=== PATIENT | female | born 1965 | race Caucasian/White ===

== ENCOUNTER 2016-04-25 17:42 | Emergency (ER) | payer MEDICAID ==
[2015-11-24 09:42] VITALS: BMI 18.8
[~2016-04-25 17:42] MED LIST: CARAFATE1 G PO; CARDIZEM120 MG; CATAPRES0.1 MG PO; COREG25 MG PO; DYAZIDE 37.5/251 CAP PO; LISINOPRIL10 MG PO; METOPROLOL TART50 MG PO; NEXIUM20 MG PO; NORCO 10/325 TA1 TA1 PO; NORMODYNE / TR300 MG PO; NORVASC10 MG PO; PHENERGAN25 MG RC
[2016-04-25 18:46] LABS: BASOPHILS 0.5 % (0.0-2.0); EOSINOPHILS 0.1 % (0-7); HEMATOCRIT 49.4 % (36.0-48.0); HEMOGLOBIN 17.4 g/dL (12-16); IMMATURE GRANULOCYTES 0.1 % (0-5); LYMPHOCYTES 24.5 % (15-50); MCH 28.7 pg (26.0-34.0); MCHC 35.2 g/dL (31.0-37.0); MCV 81.4 fL (80.0-100.0); MEAN PLATELET VOLUME 9.5 fL (7.4-10.4); MONOCYTES 12.7 % (2-11); NEUTROPHILS 62.1 % (40-80); RBC 6.07 10x6/uL (4.00-5.40); RDW 15.1 % (11.5-14.5)
[2016-04-25 18:48] LABS: PLATELET COUNT 256 10x3/uL (130-400)
[2016-04-25 19:41] LABS: ALBUMIN 4.3 g/dL (3.4-5.0); ALKALINE PHOSPHATASE 43 U/L (46-116); ALT (SGPT) 22 U/L (10-68); AMYLASE - SERUM 129 U/L (25-115); BILIRUBIN - TOTAL 0.53 mg/dL (0.2-1.3); CALCIUM 10.2 mg/dL (8.5-10.1); CARBON DIOXIDE 31.9 mmol/L (21.0-32.0); CHLORIDE - SERUM 93 mmol/L (98-107); CREATINE KINASE 314 UL (21-215); CREATININE - SERUM 1.5 mg/dL (0.6-1.3); LIPASE 923 U/L (73-393); SODIUM 138 mmol/L (136-145); UREA NITROGEN 28 mg/dL (7-18); eGFR NON AFRICAN AMERICAN 39 mL/min (90-120)
[2016-04-25 19:44] LABS: CALC OSMOLALITY 285 mosm/kg (275-300); GLUCOSE 168 mg/dL (74-106)
[2016-04-25 19:48] LABS: POTASSIUM - SERUM 2.3 mmol/L (3.5-5.1)
[2016-04-25 19:50] LABS: CKMB 36.5 U/L (0.0-3.6)
== END 2016-04-25 22:50 | disposition home or self-care (01) ==
LOC: D.ER 17:42
PROVIDERS: Family Medicine
DX: R10.9 Unspecified abdominal pain (principal); R11.10 Vomiting, unspecified; K85.90 Acute pancreatitis without necrosis or infection, unspecified; K21.9 Gastro-esophageal reflux disease without esophagitis; I10 Essential (primary) hypertension; R00.0 Tachycardia, unspecified

== ENCOUNTER 2016-04-27 14:43 | Emergency (ER) | payer MEDICAID ==
[2015-11-24 09:42] VITALS: BMI 18.8
[2016-04-27 15:53] LABS: BASOPHILS 0.7 % (0.0-2.0); EOSINOPHILS 0.7 % (0-7); HEMATOCRIT 44.4 % (36.0-48.0); HEMOGLOBIN 15.7 g/dL (12-16); IMMATURE GRANULOCYTES 0.2 % (0-5); LYMPHOCYTES 41.9 % (15-50); MCH 28.7 pg (26.0-34.0); MCHC 35.4 g/dL (31.0-37.0); MCV 81.2 fL (80.0-100.0); MEAN PLATELET VOLUME 9.5 fL (7.4-10.4); MONOCYTES 9.5 % (2-11); PLATELET COUNT 215 10x3/uL (130-400); RBC 5.47 10x6/uL (4.00-5.40); RDW 14.5 % (11.5-14.5)
[2016-04-27 16:00] LABS: WBC 5.6 10x3/uL (4.8-10.8)
[2016-04-27 16:41] LABS: ALBUMIN 3.8 g/dL (3.4-5.0); BILIRUBIN - TOTAL 0.64 mg/dL (0.2-1.3); CALCIUM 9.7 mg/dL (8.5-10.1); CARBON DIOXIDE 33.2 mmol/L (21.0-32.0); CREATININE - SERUM 1.5 mg/dL (0.6-1.3)
[2016-04-27 16:44] LABS: ANION GAP 10.6 mmol/L (8-16)
[2016-04-27 16:47] LABS: POTASSIUM - SERUM 2.8 mmol/L (3.5-5.1)
[2016-04-27 17:49] LABS: APPEARANCE CLEAR (CLEAR); BILIRUBIN NEGATIVE (NEGATIVE); COLOR YELLOW (YELLOW); GLUCOSE NEGATIVE (NEGATIVE); KETONE NEGATIVE (NEGATIVE); LEUKOCYTE ESTERASE NEGATIVE (NEGATIVE); NITRITE NEGATIVE (NEGATIVE); PROTEIN NEGATIVE (NEGATIVE); UROBILINOGEN NORMAL (NORMAL)
[2016-04-27 18:07] LABS: LIPASE 348 U/L (73-393)
[2016-04-27 18:10] LABS: AMYLASE - SERUM 89 U/L (25-115)
== END 2016-04-27 18:55 | disposition home or self-care (01) ==
LOC: D.ER 14:43
PROVIDERS: Emergency Medicine; Physician Assistant
DX: R10.9 Unspecified abdominal pain (principal); M54.5 Low back pain; E87.6 Hypokalemia

== ENCOUNTER 2016-04-29 12:07 | Emergency (ER) | payer MEDICAID ==
[2015-11-24 09:42] VITALS: BMI 18.8
[2016-04-29 12:57] LABS: BASOPHILS 0.9 % (0.0-2.0); EOSINOPHILS 2.1 % (0-7); HEMOGLOBIN 16.4 g/dL (12-16); IMMATURE GRANULOCYTES 0.2 % (0-5); LYMPHOCYTES 25.1 % (15-50); MCH 28.8 pg (26.0-34.0); MCHC 35.7 g/dL (31.0-37.0); MCV 80.8 fL (80.0-100.0); MEAN PLATELET VOLUME 9.7 fL (7.4-10.4); MONOCYTES 17.4 % (2-11); NEUTROPHILS 54.3 % (40-80); PLATELET COUNT 207 10x3/uL (130-400); RBC 5.69 10x6/uL (4.00-5.40); WBC 4.3 10x3/uL (4.8-10.8)
[2016-04-29 13:13] LABS: APPEARANCE CLEAR (CLEAR); BILIRUBIN NEGATIVE (NEGATIVE); COLOR YELLOW (YELLOW); GLUCOSE NEGATIVE (NEGATIVE); KETONE NEGATIVE (NEGATIVE); LEUKOCYTE ESTERASE TRACE (NEGATIVE); NITRITE NEGATIVE (NEGATIVE); PROTEIN NEGATIVE (NEGATIVE); UROBILINOGEN NORMAL (NORMAL)
[2016-04-29 13:15] LABS: BACTERIA FEW /hpf (NONE SEEN); EPITHELIAL CELLS 0-5 /hpf (0-5); MUCUS <1+ /lpf (NONE SEEN); WHITE CELLS - URINE 0-5 /hpf (0-5)
[2016-04-29 13:18] LABS: ALBUMIN 4.2 g/dL (3.4-5.0); ANION GAP 12.9 mmol/L (8-16); BILIRUBIN - TOTAL 0.6 mg/dL (0.2-1.3); CALCIUM 9.5 mg/dL (8.5-10.1); CARBON DIOXIDE 32.6 mmol/L (21.0-32.0); CREATININE - SERUM 1.2 mg/dL (0.6-1.3); PROTEIN - SERUM 7.8 g/dL (6.4-8.2)
[2016-04-29 13:19] LABS: POTASSIUM - SERUM 3.5 mmol/L (3.5-5.1)
== END 2016-04-29 15:57 | disposition home or self-care (01) ==
LOC: D.ER 12:07
PROVIDERS: Emergency Medicine
DX: R10.32 Left lower quadrant pain (principal); K86.1 Other chronic pancreatitis

== ENCOUNTER 2016-10-16 11:53 | Inpatient (IN) | payer MEDICAID ==
[~2016-10-16] VITALS: Ht 165.1 cm; Wt 49.6 kg
[2016-10-16 12:36] LABS: BASOPHILS 0 % (0-2); EOSINOPHILS 0 % (0-7); HEMATOCRIT 40.4 % (36.0-48.0); HEMOGLOBIN 14.1 g/dL (12-16); IMMATURE GRANULOCYTES 0.3 % (0-5); LYMPHOCYTES 10.8 % (15-50); MCH 29.7 pg (26.0-34.0); MCHC 34.9 g/dL (31.0-37.0); MCV 85.2 fL (80.0-100.0); MONOCYTES 10.5 % (2-11); NEUTROPHILS 78.4 % (40-80); RBC 4.74 10x6/uL (4.00-5.40); RDW 11.9 % (11.5-14.5); WBC 3.6 10x3/uL (4.8-10.8)
[2016-10-16 12:38] LABS: PLATELET COUNT 120 10x3/uL (130-400)
[2016-10-16 12:49] LABS: ALBUMIN 3.6 g/dL (3.4-5.0); ANION GAP 9.9 mmol/L (8-16); BILIRUBIN - TOTAL 0.49 mg/dL (0.2-1.3); CALCIUM 8.3 mg/dL (8.5-10.1); CARBON DIOXIDE 33.4 mmol/L (21.0-32.0); CREATININE - SERUM 1.3 mg/dL (0.6-1.3); PROTEIN - SERUM 8.1 g/dL (6.4-8.2)
[2016-10-16 12:54] LABS: POTASSIUM - SERUM 2.3 mmol/L (3.5-5.1)
[2016-10-16 13:15] LABS: APPEARANCE CLEAR (CLEAR); BILIRUBIN NEGATIVE (NEGATIVE); COLOR YELLOW (YELLOW); GLUCOSE NEGATIVE (NEGATIVE); KETONE NEGATIVE (NEGATIVE); LEUKOCYTE ESTERASE NEGATIVE (NEGATIVE); NITRITE NEGATIVE (NEGATIVE); PROTEIN 2+ mg/dL (NEGATIVE); UROBILINOGEN NORMAL (NORMAL)
[2016-10-16 13:16] LABS: BACTERIA FEW /hpf (NONE SEEN); EPITHELIAL CELLS 0-5 /hpf (0-5); RED CELLS - URINE 0-5 /hpf (0-5); WHITE CELLS - URINE 0-5 /hpf (0-5)
--- NOTE | 2016-10-16 16:41 | NUR ---
PT RECEIVED TO ROOM 2108 VIA WHEELCHAIR. PT ORIENTED TO ROOM AND CALL LIGHT. PT RUNNING TEMP OF 102.2, TYLENOL GIVEN IN THE ER. PLACED WET WASH CLOTH TO FORHEAD. PT ASSESSED AT THIS TIME. IVFS STARTED INFUSING AND IVBP ROCEPHINE HUNG AND IV SOLU MEDROL GIVEN. PT RUNNING SR 95. PT DENIES ANY NEEDS AT THIS TIME. CALL LIGHT IN REACH, NAD NOTED, WILL CONTINUE TO MONITOR.
[2016-10-16 17:00] VITALS: BP 114/79; BMI 17.5
[2016-10-16] MEDS ORDERED: LIPITOR20 MG PO (17:16)
[2016-10-16] MEDS ORDERED: ATIVAN0.5 MG PO (17:18)
[2016-10-16] MEDS ORDERED: ATIVAN1 MG PO (17:19)
[2016-10-16] MEDS ORDERED: PHENERGAN25 M1 PO (17:20)
[2016-10-16] MEDS ORDERED: LISINOPRIL-HCTZ1 T13 PO (17:20)
[2016-10-16 20:00] VITALS: BP 104/62
--- NOTE | 2016-10-16 21:59 | NUR ---
INITIAL ROUNDS FARIBA T 1919 HRS. PT DENIED ANY DISCOMFORT. ASSESSMETN COMPLETEDA T 1954 HRS. VSS. SR PER CM HR 92. O2 2LNC. LUNGS DIMINISHED IN BASES BILAT. SLIGHT WEAKNESS NOTED TO L HAND. PM LOPRESSSOR HELD BP 91/53. RATIONALE EXPLAINED TO PT. PT CURRENTLY RESTING WITH EYES CLOSED. RESP EVEN AND REGULAR. SR UP X2, CALL LIGHT WITHIN REACH.
--- NOTE | 2016-10-16 23:40 | NUR ---
LAST DOSE OF KCL 20MEQ IN CRANBEERY JUICE GIVEN. PT DENIES ANY DISOCMFRT. WILL CONTINUE TO MONITOR.
--- NOTE | 2016-10-17 01:34 | NUR ---
PT RESTING WITH EYES CLOSED. RESP EVEN AND REGULAR. SR UP X2,CALL LIGHT WITHIN REACH.
[2016-10-17 04:00] VITALS: BP 93/59
--- NOTE | 2016-10-17 04:49 | NUR ---
PT RESTING WITH EYES CLOSED. RESP EVEN AND REGULAR. SR UP X2, CALL LIGHT WITHIN REACH.
--- NOTE | 2016-10-17 06:32 | NUR ---
VSS THRUGHOUT NIGHT. PT DENIES ANY DISCOMFORT. NEEDS MET; WILL CONTINUE TO MONITOR.
[2016-10-17 06:44] LABS: BASOPHILS 0 % (0-2); EOSINOPHILS 0 % (0-7); HEMATOCRIT 34.1 % (36.0-48.0); IMMATURE GRANULOCYTES 0.2 % (0-5); LYMPHOCYTES 5.1 % (15-50); MCH 29.4 pg (26.0-34.0); MCHC 35.2 g/dL (31.0-37.0); MCV 83.6 fL (80.0-100.0); MEAN PLATELET VOLUME 10.3 fL (7.4-10.4); MONOCYTES 3.5 % (2-11); NEUTROPHILS 91.2 % (40-80); PLATELET COUNT 96 10x3/uL (130-400); RBC 4.08 10x6/uL (4.00-5.40); WBC 4.9 10x3/uL (4.8-10.8)
[2016-10-17 06:53] LABS: ALBUMIN 2.8 g/dL (3.4-5.0); ANION GAP 13.8 mmol/L (8-16); BILIRUBIN - TOTAL 0.23 mg/dL (0.2-1.3); CALCIUM 7.3 mg/dL (8.5-10.1); CARBON DIOXIDE 27.5 mmol/L (21.0-32.0); CREATININE - SERUM 1.1 mg/dL (0.6-1.3); PROTEIN - SERUM 6.4 g/dL (6.4-8.2)
[2016-10-17 06:54] LABS: POTASSIUM - SERUM 3.3 mmol/L (3.5-5.1)
[2016-10-17 07:03] LABS: PLATELET ESTIMATE DECREASED
[2016-10-17 08:09] VITALS: BP 125/80
[2016-10-17 12:00] VITALS: BP 121/82
--- NOTE | 2016-10-17 13:00 | NUR ---
ALERT AND ORIENTED X4. RESTING IN BED. TYLENOL GIVEN ORDERED FOR HEADACHE. REQUESTING TO TAKE A NAP. ELECTROLYTE PROTOCOL POTASSIUM REPLACEMENT COMPLETE. DENIES ANY NEEDS. RECIEVES LOVENOX INJ. BED LOCKED AND LOW. CALL LIGHT IN REACH. TWO SIDERAILS UP. SINUS RHTHYM 83bpm ON TELEMETRY.
--- NOTE | 2016-10-17 16:28 | NUR ---
ALERT AND ORIENTED X4. RESTING IN BED. FAMILY AT BEDSIDE. REQUESTING FOR TO BE CALLED FOR PAIN MEDICATION. TYLENOL 500mg NOT AFFECTIVE FOR PAIN MANAGEMENT. PAGE . CONTINUE PLAN OF CARE AND SAFETY PRECAUTIONS.
--- NOTE | 2016-10-17 18:13 | NUR ---
ALERT AND ORIENTED X4. SITTING UP IN BED. TRAMADOL 50mg ORDERED Q4PRN FOR PAIN PER VIA TELEPHONE. PER , "I ALREADY TOLD HER YESTERDAY THAT I WAS NOT GOING TO PRESCRIBE HER ANY NARCOTICS BECAUSE IT ISN'T A HOME MEDICATION. SHE GOES OUT ON THE STREET TO GET MEDICATIONS." ASK PATIENT IF SHE REMEMBERS CONVERSATION. PATIENT REPLIES, "OH OK. YEA I REMEMBER." ENCOURAGE PATIENT NOT TO HAVE NURSE CALL FOR ANYMORE MEDICATION BECAUSE HE ALREADY SAID NO TWICE. DENIES ANY NEEDS. SINUS RHTHYM 85bpm ON TELEMETRY. BED LOCKED AND LOW. CALL LIGHT IN REACH. TWO SIDERAILS UP.
[2016-10-17 20:00] VITALS: BP 115/72
--- NOTE | 2016-10-17 22:07 | NUR ---
INITIAL ROUNDS COMPLETED AT 1914 HRS. PT REQUESTING PAIN MEDS. INFORMED ULTRAM NOT DUE UNTIL 2114 HRS. PT THEN ASKED IF SHE COULD HAVE 2 INSTEAD OF 1. INFORMED THE ORDERES WERE FOR 1 ONLY. PT THEN ASK ID RN COULD CALL DR DANIEL AND GET SOMETHING ELSE. INFORMED PT THAT DR. DANIEL HAS ALREADY BEEN CALLED TODAY AND HE IS NOT GOING TO PRESCRIBE ANYTHING ELSE AND DR DANIEL SPOKE TO PT 10/16/16 ON ADMISSION AND EXPLAINED TO PT RATIONALE. PT THEN STATED "OH YEAH, HE DID.". ASSESSMENT COMPLETED AT [address] PER CM HR 101. O2 2LNC. LUNGS DMINISHED IN BASES BILAT. IV TO R WRIST WITH NS AT 100CC/HR. IV PATENT. PM MEDS GIVEN INCLUDING ULTRAM. PT CURRENTLY WATCHING TV. WILL CONTINUE TO MONITOR. SR UP X2, CALL LIGHT WITHIN REACH.
--- NOTE | 2016-10-18 00:18 | NUR ---
PHENERGAN 25MG PO GIVEN FOR C/O NAUSEA. WILL CONTINUE TO MONITOR.
--- NOTE | 2016-10-18 02:00 | NUR ---
PT RESTING WITH EYES CLOSED. RESP EVENA ND REGULAR. SR UP X2, CALL LIGHT WITHIN REACH.
[2016-10-18 04:00] VITALS: BP 103/61
--- NOTE | 2016-10-18 04:57 | NUR ---
PT RESTING WITH EYES CLOSED. RESP EVEN AND REGULAR. SR UP X2, CALL LIGHT WITHIN REACH.
[2016-10-18 05:35] LABS: BASOPHILS 0 % (0-2); EOSINOPHILS 0 % (0-7); HEMATOCRIT 32.5 % (36.0-48.0); HEMOGLOBIN 11.3 g/dL (12-16); IMMATURE GRANULOCYTES 0.2 % (0-5); LYMPHOCYTES 7.6 % (15-50); MCH 29.3 pg (26.0-34.0); MCHC 34.8 g/dL (31.0-37.0); MCV 84.2 fL (80.0-100.0); MEAN PLATELET VOLUME 11.2 fL (7.4-10.4); MONOCYTES 4.1 % (2-11); NEUTROPHILS 88.1 % (40-80); PLATELET COUNT 94 10x3/uL (130-400); RBC 3.86 10x6/uL (4.00-5.40); RDW 12.2 % (11.5-14.5); WBC 6.1 10x3/uL (4.8-10.8)
[2016-10-18 05:47] LABS: ANION GAP 13.3 mmol/L (8-16); CALCIUM 7.8 mg/dL (8.5-10.1); CARBON DIOXIDE 28.1 mmol/L (21.0-32.0); CREATININE - SERUM 0.9 mg/dL (0.6-1.3)
[2016-10-18 06:15] LABS: POTASSIUM - SERUM 2.4 mmol/L (3.5-5.1)
--- NOTE | 2016-10-18 06:29 | NUR ---
VSS THROUGHOUT NIGHT. PT STATES ULTRAM AND PHENERGAN HELPED HER CHRONIC DISCOMFORT. NEEDS MET; WILL CONTINUE TO MONITOR.
--- NOTE | 2016-10-18 06:48 | NUR ---
k+ 2.4. KCL 20 MEQ MIXED IN 120CC OF CRANBERRY JUICE GIVEN PO PER ELECTROLYTE PROTOCOL. WILL CONTINUE TO MONITOR.
[2016-10-18 09:13] VITALS: BP 92/60
[2016-10-18 11:59] VITALS: BP 99/61
[2016-10-18 12:04] VITALS: Ht 165.1 cm; Wt 49.6 kg
--- NOTE | 2016-10-18 13:36 | NUR ---
ALERT AND ORIENTED X4. AMBULATING IN HUBBARD. DESTINY FROM LAB CALL CRITICAL POTASSIUM 2.7. IMPROVE FROM 5AM LABS K-2.4. ELECTROLYTE PROTOCOL CONTINUED PER ORDER FOR POTASSIUM REPLACEMENT. SINUS RHTHYM 92bpm ON TELEMETRY. CONTINUE PLAN OF CARE AND SAFETY PRECAUTIONS.
--- NOTE | 2016-10-18 14:13 | NUR ---
Patient Name: DEBBIE LANIER Admission Status: ER Accout number: [id number] Admission Date: 10-16-2016 : 1965 Admission Diagnosis: Attending: ANNMARIE Current LOS: 2 Anticipated DC Date: Planned Disposition: Home Primary Insurance: MEDICAID [place] Discharge Planning Comments: CM MET WITH PATIENT TO DISCUSS DISCHARGE PLANNING/NEEDS. PATIENT IS STILL SHORT OF BREATH FROM WALKING WITH PHYSICAL THERAPY. OFFERED TO COME BACK IN A BIT, BUT PATIENT STATED SHE WAS OK TO TALK NOW. SHE IS NOT ON OXYGEN AT HOME, BUT MAY BENEFIT FROM WALK TEST IF DOESN'T IMPROVE GREATLY BY DISCHARGE. SHE SAID SHE LIVES AT HOME WITH HER , GIL LANIER, AND THEIR 4 INDOOR DOGS AND ONE OUT DOOR DOG. SHE SAID SHE HAS NO MEDICAL EQUIPMENT NOR DOES SHE THINK SHE REALLY NEEDS ANY. SHE DENIES HOME HEALTH, AND SAID SHE DIDN'T THINK SHE NEEDED THAT EITHER. HER PLAN IS TO RETURN HOME AND SHE STATED HER STEPDAD WILL TAKE HER HOME AT DISCHARGE. CM WILL CONTINUE TO FOLLOW AND ASSIST NEEDED. Clinical Cytogeneticist: Homa Daniel Is the patient Alert and Oriented? Yes * How many steps to enter\exit or inside your home? 5, RAIL * PCP DR LANE * Pharmacy [facility] * Preadmission Environment Home with Family * ADLs Independent * Equipment None * List name and contact numbers for known caregivers / representatives who currently or will assist patient after discharge: ABDIRIZAK JARAMILLO, * Community resources currently utilized None * Additional services required to return to the preadmission environment? No * Can the patient safely return to the preadmission environment? Yes * Has this patient been hospitalized within the prior 30 days at any hospital? No
[2016-10-18 16:38] VITALS: BP 99/63
--- NOTE | 2016-10-18 19:10 | NUR ---
ALERT/AWAKE WATCHING TV. ORIENTED X 4. RATES PAIN LEVEL AT 7 ON NUMBER SCALE OF RT LEG, DESCRIBED ACHING/THROBBING. 0N 02 AT 2L/NC. RR 20 EVEN U/L. TELEMETRY SHOWS 110 ST. IV IN R WRIST INTACT SL. REQUESTED MORE ICE WATER AND BRIEFS FOR INCONTINENCE.
[2016-10-18 21:28] VITALS: BP 115/78
[2016-10-19 00:44] VITALS: BP 120/79
--- NOTE | 2016-10-19 04:25 | NUR ---
ADMIN PHENERGAN PO PER REQUEST FOR C/O NAUSEA. NO OTHER NEEDS VOICED.
[2016-10-19 05:25] VITALS: BP 104/67
[2016-10-19 06:53] LABS: CALC OSMOLALITY 278 mosm/kg (275-300); CALCIUM 7.6 mg/dL (8.5-10.1); CARBON DIOXIDE 30.3 mmol/L (21.0-32.0); CHLORIDE - SERUM 99 mmol/L (98-107); CREATININE - SERUM 0.7 mg/dL (0.6-1.3); GLUCOSE 149 mg/dL (74-106); SODIUM 139 mmol/L (136-145); UREA NITROGEN 8 mg/dL (7-18); eGFR NON AFRICAN AMERICAN > 90 mL/min (90-120)
[2016-10-19 07:49] LABS: BASOPHILS 0 % (0-2); EOSINOPHILS 0.2 % (0-7); IMMATURE GRANULOCYTES 0.6 % (0-5); LYMPHOCYTES 8.7 % (15-50); MCH 28.9 pg (26.0-34.0); MCHC 34.8 g/dL (31.0-37.0); MCV 83.2 fL (80.0-100.0); MEAN PLATELET VOLUME 10.2 fL (7.4-10.4); NEUTROPHILS 84.5 % (40-80); PLATELET COUNT 98 10x3/uL (130-400); RDW 12.4 % (11.5-14.5); WBC 5.3 10x3/uL (4.8-10.8)
[2016-10-19 07:50] LABS: HEMATOCRIT 23.3 % (36.0-48.0); HEMOGLOBIN 8.1 g/dL (12-16)
[2016-10-19 08:00] VITALS: BP 127/78
--- NOTE | 2016-10-19 08:46 | NUR ---
ALERT AND ORIENTED X4. RESTING IN BED. ELECTROLYTE PROTOCOL FOLLOWED FOR POTASSIUM 3.3 REPLACEMENT. ORDER FOR LAB TO RECHECK MADE. INITIATE PAIN MANAGEMENT ORDERED. CONTINUE PLAN OF CARE. SINUS RHTHYM 96bpm ON TELEMETRY. BED LOCKED AND LOW. CALL LIGHT IN REACH. TWO SIDERAILS UP. RECIEVES LOVENOX INJ. NO SCDs.
--- NOTE | 2016-10-19 11:14 | NUR ---
ALERT AND ORIENTED X4. RT WRIST IV INFILTRATED. DC RT WRIST IV TIP INTACT. RESITE IV 22G SUCCESSFUL X2 ATTEMPT. UNABLE TO SITE 20G PER MARIA ALEJANDRA VASCULAR NURSE. SINUS TACH 114bpm ON TELEMETRY. CONTINUE PLAN OF CARE AND SAFETY PRECAUTIONS.
[2016-10-19 12:00] VITALS: BP 125/79
[2016-10-19 16:00] VITALS: BP 103/61
--- NOTE | 2016-10-19 18:48 | NUR ---
ALERT AND ORIENTED X4. RESTING IN BED. POTASSIUM 4.0. ORDER FOR PRBC TRANSFUSION 1 UNIT. DELEGATE TRANSFUSION TO HUBERT SARAH. TWO DISCHARGES HAD TO BE COMPLETED FIRST. SINUS TACH 107bpm ON TELEMETRY. PREPARE SHIFT CHANGE REPORT. BED LOCKED AND LOW. CALL LIGHT IN REACH. TWO SIDERAILS UP.
--- NOTE | 2016-10-19 21:30 | NUR ---
RETURNING TO BED FROM . ADMIN SCHED MEDS AND TRAMADOL PO PER REQUEST FOR C/O ABD PAIN LEVEL 7 ON NUMBER SCALE, DESCRIBED ACHING. NURSING ASSESSMENTS COMPLETED. SEE COMPUTER FLOWSHEET. IV IN R FA INTACT SL. TELEMETRY SHOWS [address] ON THE MONITOR. ON 02 AT 2L/NC. RR 20 EVEN U/L. NO OTHER NEEDS VOICED.
[2016-10-19 21:41] VITALS: BP 126/77
--- NOTE | 2016-10-19 22:49 | NUR ---
2230: STARTED UNIT OF PRBC'S ORDERED. VS STABLE.
[2016-10-20 01:03] VITALS: BP 137/90
--- NOTE | 2016-10-20 02:45 | NUR ---
UNIT OF PRBC'S FINISHED. REQUESTED TO GO TO BATHROOM.
[2016-10-20 05:36] VITALS: BP 131/88
[2016-10-20 06:58] LABS: BASOPHILS 0 % (0-2); EOSINOPHILS 0 % (0-7); HEMATOCRIT 28.8 % (36.0-48.0); HEMOGLOBIN 10.1 g/dL (12-16); LYMPHOCYTES 12.2 % (15-50); MCH 29.8 pg (26.0-34.0); MCHC 35.1 g/dL (31.0-37.0); MONOCYTES 10.6 % (2-11); NEUTROPHILS 76.2 % (40-80); PLATELET COUNT 151 10x3/uL (130-400); RBC 3.39 10x6/uL (4.00-5.40); RDW 12.6 % (11.5-14.5); WBC 5.1 10x3/uL (4.8-10.8)
[2016-10-20 07:22] LABS: % SATURATION 48 % (15-55); IRON 111 ug/dl (35-150); TOTAL IRON BIND CAPACITY 228 ug/dl (260-445); UNSAT IRON BIND CAPACITY 117 ug/dl (150-375)
[2016-10-20 07:33] LABS: ANION GAP 10.6 mmol/L (8-16); CARBON DIOXIDE 33.8 mmol/L (21.0-32.0)
[2016-10-20 07:45] LABS: CREATININE - SERUM 0.9 mg/dL (0.6-1.3)
[2016-10-20 07:46] LABS: POTASSIUM - SERUM 2.4 mmol/L (3.5-5.1)
[2016-10-20 08:00] VITALS: BP 139/89
--- NOTE | 2016-10-20 08:44 | NUR ---
PT C/O OF NUASEA, THREW UP BREAKFAST. PHENERGAN PO GIVEN AT THIS TIME, AND AM MEDS. PT IN BED, DENIE ANY OTHER NEEDS AT THIS TIME. CALL LIGHT IN REACH, NAD NOTED, WILL CONTINUE TO MONITOR.
--- NOTE | 2016-10-20 11:52 | NUR ---
PT UNABLE TO TOLERATE TAKING PO K. THREW UP BOTH DOSES GIVEN THIS AM. WILL DO IV K. AND HAVE LAB RE-DRAWN. PT STILL NAUSEATED, DENIES ANY OTHER NEEDS AT THIS TIME. CALL LIGHT IN REACH, NAD NOTED, WILL CONTINUE TO MONITOR.
[2016-10-20 12:00] VITALS: BP 136/90
--- NOTE | 2016-10-20 12:20 | NUR ---
K IV RIDER STARTED INFUSING AT THIS TIME, SINCE PT CAN NOT TOLERATE PO K. PT IN BED, DENIES ANY NEEDS AT THIS TIME. CALL LIGHT IN REACH, NAD NOTED, WILL CONTINUE TO MONITOR.
--- NOTE | 2016-10-20 14:55 | NUR ---
HUNG IVPB VERA, ALSO HUNG ANOTHER BAG OF K. PT STATES THAT SHE IS STILL NAUSEAS AND THROWING UP. WHEN I WAS HANGING IVPB I SAW PT STICKING HER FINGER DOWN HER THROAT TRYING TO MAKE HER SELF THROW UP. TOLD PT TO STOP STICKING HER FINGER DOWN HER THROAT.
--- NOTE | 2016-10-20 15:57 | NUR ---
PT HAD INCOT EPISODE, STATED I WAS NOT ABLE TO MAKE IT TO BATHROOM ON TIME. SHANKER OUT SET UP ITEMS FOR PT TO CLEAN UP. PT DENIES ANY OTHER NEEDS AT THIS TIME. CALL LIGHT IN REACH, NAD NOTED, WILL CONTINUE TO MONITOR.
[2016-10-20 19:00] VITALS: BP 146/96
--- NOTE | 2016-10-20 19:39 | NUR ---
RECEIVED REPORT, WILL ASSUME CARE OF PT, PT SLEEPING ON L.SIDE, BED IS LOW, SRX2, CALL LIGHT IN REACH , WILL CONTINUE PLAN OF CARE
[2016-10-21] VITALS: BP 136/85
--- NOTE | 2016-10-21 00:34 | NUR ---
PT PULLED IV OUT OF R. WRIST, RESTARTED IV IN R. FA, 20 G, IST ATTEMPT
--- NOTE | 2016-10-21 01:40 | NUR ---
MAG. WAS 1.1- STARTED MAG. ELECTO. WILL FOLLOW WITH K+
--- NOTE | 2016-10-21 03:11 | NUR ---
YARD INSPECTOR AT BEDSIDE TO OBTAIN VITALS, CALL LIGHT IN REACH. WILL CONTINUE TO MONITOR.
[2016-10-21 04:00] VITALS: BP 139/89
--- NOTE | 2016-10-21 04:36 | NUR ---
ASSESSMENT COMPLETE, SEE FLOWSHEET, PT RECEIVING 4TH BAG OF MAG. WILL ORDER LAB, THAN CONTINUE ELECTO. , BED IS LOW, SRX2, CALL LIGHT IN REACH, WILL CONTINUE TO MONITOR
[2016-10-21 07:33] LABS: BASOPHILS 0.2 % (0-2); EOSINOPHILS 0 % (0-7); HEMOGLOBIN 10.8 g/dL (12-16); IMMATURE GRANULOCYTES 2.6 % (0-5); LYMPHOCYTES 14.5 % (15-50); MCH 29.8 pg (26.0-34.0); MCHC 34.8 g/dL (31.0-37.0); MCV 85.4 fL (80.0-100.0); MEAN PLATELET VOLUME 9.5 fL (7.4-10.4); NEUTROPHILS 70.7 % (40-80); PLATELET COUNT 236 10x3/uL (130-400); RBC 3.63 10x6/uL (4.00-5.40); RDW 12.5 % (11.5-14.5); WBC 5.1 10x3/uL (4.8-10.8)
[2016-10-21 07:46] LABS: CALCIUM 7.3 mg/dL (8.5-10.1); CARBON DIOXIDE 33.2 mmol/L (21.0-32.0); CREATININE - SERUM 0.9 mg/dL (0.6-1.3)
[2016-10-21 07:50] LABS: POTASSIUM - SERUM 2.2 mmol/L (3.5-5.1)
[2016-10-21 08:15] VITALS: BP 143/94
--- NOTE | 2016-10-21 09:05 | NUR ---
POTASSIUM INFUSION STOPPED PER DR. DANIEL'S ORDER. AWAITING NEW MIXTURE.
[2016-10-21 09:52] LABS: FOLATE (FOLIC ACID) - SERUM 4.9 ng/mL (>3.0)
[2016-10-21 13:09] VITALS: BP 133/80
[2016-10-21 16:26] VITALS: BP 130/78
--- NOTE | 2016-10-21 18:21 | NUR ---
PATIENT GIVEN ULTRAM FOR C/O BACK PAIN RATED A 7. SHE IS AWAKE AND ALERT, DENIES OTHER NEEDS. SHE HASN'T TAKEN IN ANY OF HER LUNCH OR SUPPER TODAY. HER IV FLUIDS HAVE ALL INFUSED PER ORDERS WITHOUT EVIDENCE OR ADVERSE REACTIONS TO THE INSERTION SITE. SHE IS UP TO THE RESTROOM WITH ASSISTANCE WITH THE EQUIPMENT. SHE IS STEADY ON HER LEGS.
[2016-10-21 19:00] VITALS: BP 152/101
--- NOTE | 2016-10-21 19:26 | NUR ---
RECEIVED REPORT WILL ASSUME CARE OF PT, RECEIVING BREATHING TREATMENT, DENIES ANY NEEDS AT THIS TIME, BED IS LOW, SRX2, CALL LIGHT IN REACH, WILL CONTINUE PLAN OF CARE
[2016-10-22] VITALS: BP 142/82
[2016-10-22 04:00] VITALS: BP 143/86
--- NOTE | 2016-10-22 04:18 | NUR ---
ASSESSMENT COMPLETE, SEE FLOWSHEET, BED IS LOW, SRX2, CALL LIGHT IN REACH, CONSENTS SIGNED FOR EGD, PT BEEN NPO SINCE MIDNIGHT, WILL CONTINUE PLAN OF CARE
[2016-10-22 05:18] LABS: BASOPHILS 0.1 % (0-2); EOSINOPHILS 0 % (0-7); HEMATOCRIT 34.2 % (36.0-48.0); HEMOGLOBIN 12.1 g/dL (12-16); IMMATURE GRANULOCYTES 2.4 % (0-5); LYMPHOCYTES 8.9 % (15-50); MCH 30.6 pg (26.0-34.0); MCHC 35.4 g/dL (31.0-37.0); MCV 86.6 fL (80.0-100.0); MEAN PLATELET VOLUME 9.4 fL (7.4-10.4); MONOCYTES 13.4 % (2-11); NEUTROPHILS 75.2 % (40-80); PLATELET COUNT 297 10x3/uL (130-400); RBC 3.95 10x6/uL (4.00-5.40); RDW 12.8 % (11.5-14.5); WBC 10.1 10x3/uL (4.8-10.8)
[2016-10-22 05:32] LABS: ANION GAP 13.4 mmol/L (8-16); CARBON DIOXIDE 25.4 mmol/L (21.0-32.0); CREATININE - SERUM 0.9 mg/dL (0.6-1.3)
[2016-10-22 05:33] LABS: POTASSIUM - SERUM 2.8 mmol/L (3.5-5.1)
[2016-10-22 08:20] VITALS: BP 151/103
--- NOTE | 2016-10-22 09:56 | NUR ---
PATIENT OFF THE UNIT TO GI LAB. IV POTASSIUM AND IVF ON HOLD.
--- NOTE | 2016-10-22 10:59 | NUR ---
Nutrition follow-up: Pt has been NPO for EGD; diet now advanced to regular as tolerated Pt has had continued N/V Wt: 103# Labs reviewed Pt may benefit from ProcalAmine PPN if N/V presist. RDN following.
[2016-10-22 12:35] VITALS: BP 158/78
[2016-10-22 15:06] VITALS: BP 127/84
--- NOTE | 2016-10-22 15:10 | NUR ---
PATIENT OFF THE UNIT FOR PIPPIDA SCAN.
--- NOTE | 2016-10-22 16:45 | NUR ---
PATIENT LUIGI TO THE UNIT. AWAKE AND ALERT. DENIED PAIN/NEEDS. CALL LIGHT IS WITHIN HER REACH.
--- NOTE | 2016-10-22 18:26 | NUR ---
ATTEMPTED X4 TO OBTAIN PERIPHERAL VENOUS ACCESS WITHOUT SUCCESS. ANOTHER NURSE ASSESSED FOR A VEIN AND WAS UNSUCCESSFUL. WILL ASK ANOTHER.
[2016-10-22 20:00] VITALS: BP 151/104
--- NOTE | 2016-10-22 20:19 | NUR ---
RECEIVED REPORT, WILL ASSUME CARE OF PT, PT NEEDS IV, I TRIED WITH 2 FAILED ATTEMPTS, MAHIN RN, TRIED- FAILED ATTEMPT, AYAKA MYERS LPN IN ROOM TRYING NOW, PT DENIES ANY NEEDS, BED IS LOW, SRX2, CALL LIGHT IN REACH, WILL CONTINUE PLAN OF CARE
--- NOTE | 2016-10-22 20:42 | NUR ---
PAGED CONTACT LENS CUTTER, CANT GET IV STARTED
--- NOTE | 2016-10-22 21:06 | NUR ---
DR. REYNOSO CALLED BACK, SAID DR. DANIEL WILL RE-ACESS IN AM
[2016-10-23] VITALS: BP 151/105
[2016-10-23 04:00] VITALS: BP 137/100
--- NOTE | 2016-10-23 04:24 | NUR ---
ASSESSMENT COMPLETE, SEE FLOWSHEET, BED IS LOW, SRX2,CALL LIGHT IN REACH, WILL CONNTINUE PLAN OF CARE
--- NOTE | 2016-10-23 07:14 | NUR ---
PT LAYING TO LEFT SIDE SLEEPING RR EVEN NON LABORED NO S/S DISTRESS NOTED WILL CONT TO MONITOR
[2016-10-23 07:49] LABS: CALC OSMOLALITY 273 mosm/kg (275-300); CALCIUM 8.6 mg/dL (8.5-10.1); CARBON DIOXIDE 25.4 mmol/L (21.0-32.0); CHLORIDE - SERUM 99 mmol/L (98-107); CREATININE - SERUM 0.8 mg/dL (0.6-1.3); PHOSPHOROUS 1.7 mg/dL (2.5-4.9); POTASSIUM - SERUM 3.2 mmol/L (3.5-5.1); SODIUM 136 mmol/L (136-145); UREA NITROGEN 16 mg/dL (7-18); eGFR NON AFRICAN AMERICAN 81 mL/min (90-120)
[2016-10-23 07:54] LABS: GLUCOSE 110 mg/dL (74-106)
[2016-10-23 08:04] VITALS: BP 141/104
[2016-10-23] MEDS ORDERED: MEDROL DOSE PACK4 MG PO (11:31)
[2016-10-23] MEDS ORDERED: K-DUR20 MEQ PO (11:32)
[2016-10-23] MEDS ORDERED: MAG-OX 400 MG400 MG PO (11:32)
[2016-10-23] MEDS ORDERED: ULTRAM50 MG PO (11:33)
--- NOTE | 2016-10-23 12:27 | NUR ---
WENT OVER DC INSTRUCTIONS WITH PT PT VERBALIZES UNDERSTANING. GIVEN PT WRITTEN SCRIPT FOR TRAMADOL. WHEELED PT OUT TO FRONT ENTRANCE MALE FRIEND TO DRIVE HER HOME
== END 2016-10-23 12:28 | disposition home or self-care (01) | DRG 392 ==
LOC: D.ER 11:53 → D.M2 15:07
PROVIDERS: Family Medicine; Internal Medicine Gastroenterology; ADMIT Family Medicine
PROC: 0DB68ZX Excision of Stomach, Via Natural or Artificial Opening Endoscopic, Diagnostic (ICD-10-PCS; principal; 2016-10-22 10:00)
DX: R10.9 Unspecified abdominal pain (principal); K56.7 Ileus, unspecified; K29.70 Gastritis, unspecified, without bleeding; E87.6 Hypokalemia; J98.01 Acute bronchospasm; D64.9 Anemia, unspecified; Z86.73 Personal history of transient ischemic attack (TIA), and cerebral infarction without residual deficits; I95.9 Hypotension, unspecified

== ENCOUNTER 2016-10-24 19:42 | Emergency (ER) | payer MEDICAID ==
[2016-10-18 12:04] VITALS: BMI 19.6
[~2016-10-24 19:42] MED LIST changes: +ATIVAN0.5 MG PO; +ATIVAN1 MG PO; +K-DUR20 MEQ PO; +LIPITOR20 MG PO; +LISINOPRIL-HCTZ1 T13 PO; +MAG-OX 400 MG400 MG PO; +MEDROL DOSE PACK4 MG PO; +PHENERGAN25 M1 PO; +ULTRAM50 MG PO
[2016-10-24 20:37] LABS: BASOPHILS 0.1 % (0-2); EOSINOPHILS 0.1 % (0-7); HEMATOCRIT 43.8 % (36.0-48.0); HEMOGLOBIN 15.4 g/dL (12-16); IMMATURE GRANULOCYTES 0.7 % (0-5); LYMPHOCYTES 9.8 % (15-50); MCH 30.3 pg (26.0-34.0); MCHC 35.2 g/dL (31.0-37.0); MCV 86.2 fL (80.0-100.0); MEAN PLATELET VOLUME 9.8 fL (7.4-10.4); MONOCYTES 5.6 % (2-11); NEUTROPHILS 83.7 % (40-80); PLATELET COUNT 333 10x3/uL (130-400); RBC 5.08 10x6/uL (4.00-5.40); RDW 14.1 % (11.5-14.5); WBC 12.9 10x3/uL (4.8-10.8)
[2016-10-24 20:42] LABS: ALBUMIN 3.6 g/dL (3.4-5.0); ALKALINE PHOSPHATASE 61 U/L (46-116); ALT (SGPT) 58 U/L (10-68); BILIRUBIN - TOTAL 1.22 mg/dL (0.2-1.3); CALCIUM 9.2 mg/dL (8.5-10.1); CARBON DIOXIDE 22.9 mmol/L (21.0-32.0); CHLORIDE - SERUM 100 mmol/L (98-107); GLUCOSE 122 mg/dL (74-106); POTASSIUM - SERUM 3.2 mmol/L (3.5-5.1); PROTEIN - SERUM 7.7 g/dL (6.4-8.2); SODIUM 141 mmol/L (136-145); eGFR NON AFRICAN AMERICAN 56 mL/min (90-120)
[2016-10-24 20:43] LABS: CALC OSMOLALITY 286 mosm/kg (275-300); CREATININE - SERUM 1.1 mg/dL (0.6-1.3); UREA NITROGEN 26 mg/dL (7-18)
[2016-10-24 21:03] LABS: CKMB 4.4 U/L (0.0-3.6); CREATINE KINASE 320 UL (21-215); TROPONIN-I 0.046 ng/mL (0.000-0.060)
== END 2016-10-24 23:35 | disposition home or self-care (01) ==
LOC: D.ER 19:42
PROVIDERS: Emergency Medicine
DX: J18.9 Pneumonia, unspecified organism (principal); R53.1 Weakness; B37.0 Candidal stomatitis; E87.6 Hypokalemia; F17.200 Nicotine dependence, unspecified, uncomplicated; R00.0 Tachycardia, unspecified

== ENCOUNTER 2016-10-26 18:09 | Emergency (ER) | payer MEDICAID ==
[2016-10-18 12:04] VITALS: BMI 19.6
[2016-10-26 19:06] LABS: BASOPHILS 0.1 % (0-2); EOSINOPHILS 0.2 % (0-7); HEMOGLOBIN 14.7 g/dL (12-16); IMMATURE GRANULOCYTES 0.4 % (0-5); LYMPHOCYTES 5.6 % (15-50); MCH 30.9 pg (26.0-34.0); MONOCYTES 6.6 % (2-11); NEUTROPHILS 87.1 % (40-80); PLATELET COUNT 302 10x3/uL (130-400); RBC 4.75 10x6/uL (4.00-5.40); RDW 14.5 % (11.5-14.5)
[2016-10-26 19:07] LABS: MCV 88.4 fL (80.0-100.0)
[2016-10-26 19:27] LABS: ALBUMIN 3.4 g/dL (3.4-5.0); ALKALINE PHOSPHATASE 59 U/L (46-116); BILIRUBIN - TOTAL 1.13 mg/dL (0.2-1.3); CALCIUM 9.2 mg/dL (8.5-10.1); CARBON DIOXIDE 24.5 mmol/L (21.0-32.0); CHLORIDE - SERUM 105 mmol/L (98-107); GLUCOSE 127 mg/dL (74-106); PROTEIN - SERUM 7.4 g/dL (6.4-8.2); SODIUM 142 mmol/L (136-145)
[2016-10-26 19:33] LABS: CALC OSMOLALITY 286 mosm/kg (275-300); CREATININE - SERUM 0.8 mg/dL (0.6-1.3); UREA NITROGEN 17 mg/dL (7-18)
[2016-10-26 19:34] LABS: ALT (SGPT) 39 U/L (10-68); POTASSIUM - SERUM 4.3 mmol/L (3.5-5.1); eGFR NON AFRICAN AMERICAN 81 mL/min (90-120)
[2016-10-26 19:58] LABS: APPEARANCE CLEAR (CLEAR); BILIRUBIN NEGATIVE (NEGATIVE); COLOR YELLOW (YELLOW); GLUCOSE NEGATIVE (NEGATIVE); KETONE NEGATIVE (NEGATIVE); LEUKOCYTE ESTERASE NEGATIVE (NEGATIVE); NITRITE NEGATIVE (NEGATIVE); PROTEIN NEGATIVE (NEGATIVE); UROBILINOGEN NORMAL (NORMAL)
[2016-10-26 20:13] LABS: UDS - AMPHET NEGATIVE QUAL (NEGATIVE); UDS - BARB NEGATIVE QUAL (NEGATIVE); UDS - BENZO NEGATIVE QUAL (NEGATIVE); UDS - COCAINE NEGATIVE QUAL (NEGATIVE); UDS - METH NEGATIVE QUAL (NEGATIVE); UDS - OPIATE NEGATIVE QUAL (NEGATIVE); UDS - PCP NEGATIVE QUAL (NEGATIVE); UDS - THC POSITIVE QUAL (NEGATIVE)
== END 2016-10-26 22:11 | disposition home or self-care (01) ==
LOC: D.ER 18:09
PROVIDERS: Emergency Medicine; Nurse Practitioner Family
DX: R53.1 Weakness (principal); B96.89 Other specified bacterial agents as the cause of diseases classified elsewhere; R19.7 Diarrhea, unspecified

== ENCOUNTER 2016-11-01 10:27 | Emergency (ER) | payer MEDICAID ==
[2016-10-18 12:04] VITALS: BMI 19.6
[2016-11-01 12:15] LABS: BASOPHILS 0.1 % (0-2); EOSINOPHILS 0.1 % (0-7); HEMATOCRIT 43.4 % (36.0-48.0); IMMATURE GRANULOCYTES 0.3 % (0-5); MCH 30.9 pg (26.0-34.0); MCHC 34.6 g/dL (31.0-37.0); MCV 89.5 fL (80.0-100.0); MEAN PLATELET VOLUME 10.4 fL (7.4-10.4); MONOCYTES 6.6 % (2-11); NEUTROPHILS 84.9 % (40-80); PLATELET COUNT 331 10x3/uL (130-400); RBC 4.85 10x6/uL (4.00-5.40); RDW 15.2 % (11.5-14.5)
[2016-11-01 12:42] LABS: ALBUMIN 3.6 g/dL (3.4-5.0); ANION GAP 16.6 mmol/L (8-16); BILIRUBIN - TOTAL 1.02 mg/dL (0.2-1.3); CALCIUM 9.5 mg/dL (8.5-10.1); CARBON DIOXIDE 24.8 mmol/L (21.0-32.0); CREATININE - SERUM 1.4 mg/dL (0.6-1.3); MAGNESIUM - SERUM 1.9 mg/dL (1.8-2.4); POTASSIUM - SERUM 3.4 mmol/L (3.5-5.1)
[2016-11-01 12:58] LABS: INR 0.99 (0.85-1.17)
[2016-11-01 15:51] LABS: APPEARANCE CLEAR (CLEAR); COLOR DK YELLOW (YELLOW)
[2016-11-01 15:52] LABS: BILIRUBIN NEGATIVE (NEGATIVE); GLUCOSE 50 mg/dL (NEGATIVE); KETONE NEGATIVE (NEGATIVE); LEUKOCYTE ESTERASE TRACE (NEGATIVE); PROTEIN TRACE mg/dL (NEGATIVE); SPECIFIC GRAVITY 1.015 (1.005-1.020); UROBILINOGEN NORMAL (NORMAL)
[2016-11-01 15:53] LABS: UDS - AMPHET NEGATIVE QUAL (NEGATIVE); UDS - BARB NEGATIVE QUAL (NEGATIVE); UDS - BENZO NEGATIVE QUAL (NEGATIVE); UDS - COCAINE NEGATIVE QUAL (NEGATIVE); UDS - METH NEGATIVE QUAL (NEGATIVE); UDS - OPIATE NEGATIVE QUAL (NEGATIVE); UDS - PCP NEGATIVE QUAL (NEGATIVE); UDS - THC POSITIVE QUAL (NEGATIVE)
[2016-11-01 15:55] LABS: WHITE CELLS - URINE OCC /hpf (0-5)
[2016-11-01 15:56] LABS: BACTERIA FEW /hpf (NONE SEEN); EPITHELIAL CELLS 0-5 /hpf (0-5)
== END 2016-11-01 17:46 | disposition home or self-care (01) ==
LOC: D.ER 10:27
PROVIDERS: Emergency Medicine; Nurse Practitioner Family
DX: E86.0 Dehydration (principal)

== ENCOUNTER 2017-03-14 15:56 | Inpatient (IN) | payer MEDICAID ==
[~2017-03-14] VITALS: Ht 165.1 cm; Wt 49.0 kg
[2017-03-14 17:22] LABS: ALBUMIN 4.1 g/dL (3.4-5.0); BILIRUBIN - TOTAL 0.59 mg/dL (0.2-1.3); CALCIUM 9.4 mg/dL (8.5-10.1); CREATININE - SERUM 0.9 mg/dL (0.6-1.3); PROTEIN - SERUM 7.7 g/dL (6.4-8.2)
[2017-03-14 17:24] LABS: BASOPHILS 0.4 % (0-2); EOSINOPHILS 0.3 % (0-7); HEMATOCRIT 47.7 % (36.0-48.0); HEMOGLOBIN 16.3 g/dL (12-16); IMMATURE GRANULOCYTES 0.1 % (0-5); LYMPHOCYTES 33.4 % (15-50); MCH 28.2 pg (26.0-34.0); MCHC 34.2 g/dL (31.0-37.0); MCV 82.7 fL (80.0-100.0); MEAN PLATELET VOLUME 10.3 fL (7.4-10.4); MONOCYTES 9.3 % (2-11); NEUTROPHILS 56.5 % (40-80); RBC 5.77 10x6/uL (4.00-5.40); RDW 13.4 % (11.5-14.5); WBC 7.3 10x3/uL (4.8-10.8)
[2017-03-14 17:25] LABS: PLATELET COUNT 214 10x3/uL (130-400)
[2017-03-14 17:38] LABS: ANION GAP 16.5 mmol/L (8-16)
[2017-03-14 17:41] LABS: POTASSIUM - SERUM 2.5 mmol/L (3.5-5.1)
[2017-03-14 17:49] LABS: APPEARANCE CLEAR (CLEAR); BILIRUBIN NEGATIVE (NEGATIVE); COLOR YELLOW (YELLOW); GLUCOSE NEGATIVE (NEGATIVE); KETONE SMALL mg/dL (NEGATIVE); NITRITE NEGATIVE (NEGATIVE); PROTEIN TRACE mg/dL (NEGATIVE); UROBILINOGEN NORMAL (NORMAL)
[2017-03-14 17:50] LABS: BACTERIA FEW /hpf (NONE SEEN); EPITHELIAL CELLS 0-5 /hpf (0-5); RED CELLS - URINE 25-50 /hpf (0-5); WHITE CELLS - URINE 0-5 /hpf (0-5)
[2017-03-14 17:55] LABS: UDS - AMPHET NEGATIVE QUAL (NEGATIVE); UDS - BARB NEGATIVE QUAL (NEGATIVE); UDS - BENZO NEGATIVE QUAL (NEGATIVE); UDS - COCAINE NEGATIVE QUAL (NEGATIVE); UDS - OPIATE NEGATIVE QUAL (NEGATIVE); UDS - PCP NEGATIVE QUAL (NEGATIVE); UDS - THC POSITIVE QUAL (NEGATIVE)
--- NOTE | 2017-03-14 20:30 | NUR ---
PT TO ROOM 2201 BY WHEELCHAIR VIA ER STAFF. ALERT AND ORIENTED X4. IV RIGHT AC SALINE LOCKED. PT ADMITTED FOR N/V X4DAYS. CURRENTLY NPO. WILL CONTINUE TO MONITOR. PT DENIES ANY NEEDS AT THIS TIME. CALL LIGHT IN REACH, BED LOWEST POSITION SRX2.
[2017-03-14 22:02] VITALS: BP 111/84; BMI 18.0
[2017-03-15] VITALS: BP 114/80
--- NOTE | 2017-03-15 02:07 | NUR ---
PRN ZOFRAN ADMINISTERED AT THIS TIME FOR NAUSEA.
[2017-03-15 04:00] VITALS: BP 122/80
[2017-03-15 07:27] LABS: LIPASE 437 U/L (73-393)
[2017-03-15 07:28] LABS: AMYLASE - SERUM 116 U/L (25-115)
[2017-03-15 09:27] VITALS: BP 123/78
--- NOTE | 2017-03-15 10:31 | NUR ---
Patient Name: DEBBIE LANIER Admission Status: ER Accout number: [id number] Admission Date: 03-14-2017 : 1965 Admission Diagnosis: Attending: Hemant Montez Current LOS: 1 Anticipated DC Date: Planned Disposition: Home Primary Insurance: MEDICAID [place] Discharge Planning Comments: CM met with patient to assess discharge planning needs. Patient lives independently at home with her and that is her discharge plan. She stated that her will be the one to drive her home. She denies needing or having any DME or HH services. There are 4 steps to enter in her home and she stated that her home is a safe place to return too. CM will continue to follow and assist with discharge planning needs. PCP: [facility] Ryder Lanier () [phone] Pipe And Tank Fabricator: Diana Pettit * Is the patient Alert and Oriented? Yes 0 * How many steps to enter\exit or inside your home? 4 0 * PCP [facility] 0 * Pharmacy [facility] 0 * Preadmission Environment Home with Family 0 * ADLs Independent 0 * Equipment None 0 * List name and contact numbers for known caregivers / representatives who currently or will assist patient after discharge: Ryder Lanier () [phone] * Community resources currently utilized None 0 * Additional services required to return to the preadmission environment? No 0 * Can the patient safely return to the preadmission environment? Yes 0 * Has this patient been hospitalized within the prior 30 days at any hospital? No 0 Grand Total: 0
[2017-03-15 13:02] VITALS: Ht 165.1 cm; Wt 49.0 kg
[2017-03-15 13:08] VITALS: BP 130/94
--- NOTE | 2017-03-15 14:30 | NUR ---
PATIENT RECIEVED DEMEROL IVP SLOWLY OVER 2 MINUTES. IV INTACT. CALL LIGHT WITHIN REACH.
--- NOTE | 2017-03-15 15:20 | NUR ---
EXPLAINED IS AND SCDS TO PATIENT. VERBALIZED UNDERSTANDING. STATED WOULD WEAR SCDS AT NIGHT. PATIENT UP AND AMBULATES DURING DAY. IV INTACT. CALL LIGHT WITHIN REACH.
[2017-03-15 17:01] VITALS: BP 122/51
--- NOTE | 2017-03-15 17:41 | NUR ---
PATIENT SITTING UP IN BED WITH NO COMPLAINTS AT THIS TIME. IV INTACT. CALL LIGHT WITHIN REACH.
[2017-03-15 20:00] VITALS: BP 133/87
--- NOTE | 2017-03-15 21:00 | NUR ---
AWAKE,ALERT,NO COMPLAINTS VOICED,IV TO RIGHT ARM WITHOUT REDNESS OR EDEMA NOTED.ABD SOFT,NON DIDSTENDED. REMAINS NPO. CL IN REACH.
--- NOTE | 2017-03-16 02:00 | NUR ---
PT IN BED WITH NO NEEDS AT THIS TIME. SIDE RAILS X 2. BED LOW. CALL LIGHT IN REACH.
[2017-03-16 04:40] LABS: BASOPHILS 0.2 % (0-2); EOSINOPHILS 2.8 % (0-7); HEMATOCRIT 42.6 % (36.0-48.0); HEMOGLOBIN 14.4 g/dL (12-16); IMMATURE GRANULOCYTES 0.2 % (0-5); LYMPHOCYTES 48.1 % (15-50); MCHC 33.8 g/dL (31.0-37.0); MCV 82.9 fL (80.0-100.0); MEAN PLATELET VOLUME 10.4 fL (7.4-10.4); MONOCYTES 8.5 % (2-11); NEUTROPHILS 40.2 % (40-80); RBC 5.14 10x6/uL (4.00-5.40); RDW 13.1 % (11.5-14.5)
[2017-03-16 04:41] LABS: PLATELET COUNT 156 10x3/uL (130-400); WBC 4.2 10x3/uL (4.8-10.8)
--- NOTE | 2017-03-16 04:42 | NUR ---
AWAKE WITH NO COMPLAINTS. WATCHING TV QUIELTY. CL IN REACH
[2017-03-16 05:06] LABS: ALBUMIN 3.7 g/dL (3.4-5.0); ALKALINE PHOSPHATASE 35 U/L (46-116); ALT (SGPT) 16 U/L (10-68); AMYLASE - SERUM 120 U/L (25-115); BILIRUBIN - TOTAL 0.55 mg/dL (0.2-1.3); CALCIUM 8.1 mg/dL (8.5-10.1); CARBON DIOXIDE 25.4 mmol/L (21.0-32.0); CHLORIDE - SERUM 100 mmol/L (98-107); GLUCOSE 94 mg/dL (74-106); LIPASE 320 U/L (73-393); MAGNESIUM - SERUM 1.7 mg/dL (1.8-2.4); POTASSIUM - SERUM 3.2 mmol/L (3.5-5.1); PROTEIN - SERUM 7.1 g/dL (6.4-8.2); SODIUM 136 mmol/L (136-145); THYROID STIMULATING HORMONE 1.69 uIU/mL (0.36-3.74)
[2017-03-16 05:44] LABS: CALC OSMOLALITY 270 mosm/kg (275-300); CREATININE - SERUM 0.6 mg/dL (0.6-1.3); PHOSPHOROUS 1.2 mg/dL (2.5-4.9); UREA NITROGEN 9 mg/dL (7-18); eGFR NON AFRICAN AMERICAN > 90 mL/min (90-120)
--- NOTE | 2017-03-16 07:44 | NUR ---
ENTERED PT ROOM TO GREET PT AND ASSESS PT. PT DRESSED IN STREET CLOTHES. PT STATES SHE WAS GOING HOME. EXPLAINED TO HER BY ME AND LU RN NURSE MOVEMENT ASSEMBLER, ABOUT HER POSSIBLY GOING HOME TOMORROW DUE TO HER ELECTROLYTES BEING BELOW THE NORMAL LEVELS. PT DID NOT CARE STATED SHE HAD AN APPOINTMENT TOMORROW WITH DR. PATEL. I ASKED HER IF SHE HAD A RIDE TO GET HOME AND SHE STATED SHE WOULD JUST WALK. TOLD PT ABOUT WEATHER CONDITIONS AND IT BEING VERY COLD OUTSIDE. SHE STATED IT WAS NOT VERY FAR. AMA FORM SIGNED BY PT, LU, RN NURSE MOVEMENT ASSEMBLER, AND WITNESSED BY ME. IV TO R AC DC'D BY PT. DRESSING APPLIED. BELONGINGS IN HAND.
[2017-03-16 12:14] LABS: ANA REFLEX - DIRECT Negative (Negative)
[2017-03-18 08:20] LABS: IGG SUBCLASS 1 441 mg/dL (248-810); IGG SUBCLASS 2 393 mg/dL (130-555); IGG SUBCLASS 3 43 mg/dL (15-102); IGG SUBCLASS 4 15 mg/dL (2-96)
== END 2017-03-16 07:55 | disposition left against medical advice (07) | DRG 440 ==
LOC: D.ER 15:56 → D.MS 19:30
PROVIDERS: Emergency Medicine; Internal Medicine Gastroenterology; Nurse Practitioner Family; ADMIT Family Medicine
DX: K85.90 Acute pancreatitis without necrosis or infection, unspecified (principal); I10 Essential (primary) hypertension; E87.6 Hypokalemia; F12.90 Cannabis use, unspecified, uncomplicated

== ENCOUNTER 2018-12-07 16:37 | Inpatient (IN) | payer MEDICAID ==
[~2018-12-07] VITALS: Ht 165.1 cm; Wt 53.5 kg
[2018-12-07 17:23] LABS: BASOPHILS 0.2 % (0-2); EOSINOPHILS 0.2 % (0-7); HEMATOCRIT 45.5 % (36.0-48.0); HEMOGLOBIN 15.8 g/dL (12-16); IMMATURE GRANULOCYTES 0.2 % (0-5); LYMPHOCYTES 6.7 % (15-50); MCH 28.4 pg (26.0-34.0); MCHC 34.7 g/dL (31.0-37.0); MCV 81.8 fL (80.0-100.0); MEAN PLATELET VOLUME 9.7 fL (7.4-10.4); MONOCYTES 5.5 % (2-11); NEUTROPHILS 87.2 % (40-80); PLATELET COUNT 162 10x3/uL (130-400); RBC 5.56 10x6/uL (4.00-5.40); RDW 14.7 % (11.5-14.5); WBC 16.3 10x3/uL (4.8-10.8)
[2018-12-07 17:54] LABS: ALBUMIN 4.8 g/dL (3.4-5.0); ALKALINE PHOSPHATASE 78 U/L (46-116); ALT (SGPT) 35 U/L (10-68); AMYLASE - SERUM 225 U/L (25-115); BILIRUBIN - TOTAL 0.46 mg/dL (0.2-1.3); CALCIUM 10.4 mg/dL (8.5-10.1); CARBON DIOXIDE 21.6 mmol/L (21.0-32.0); CHLORIDE - SERUM 105 mmol/L (98-107); CREATININE - SERUM 1.1 mg/dL (0.6-1.3); LIPASE 666 U/L (73-393); PROTEIN - SERUM 8.7 g/dL (6.4-8.2); SODIUM 146 mmol/L (136-145); UREA NITROGEN 17 mg/dL (7-18); eGFR NON AFRICAN AMERICAN 55 mL/min (90-120)
[2018-12-07 17:56] LABS: CALC OSMOLALITY 301 mosm/kg (275-300); GLUCOSE 256 mg/dL (74-106)
[2018-12-07 17:59] LABS: POTASSIUM - SERUM 2.8 mmol/L (3.5-5.1); TROPONIN-I < 0.017 ng/mL (0.000-0.060)
[2018-12-07 19:04] LABS: APPEARANCE CLEAR (CLEAR); COLOR STRAW (YELLOW); GLUCOSE 1000 mg/dL (NEGATIVE); NITRITE NEGATIVE (NEGATIVE); PROTEIN 2+ mg/dL (NEGATIVE); SPECIFIC GRAVITY 1.015 (1.005-1.020)
[2018-12-07 19:05] LABS: BILIRUBIN NEGATIVE (NEGATIVE); KETONE NEGATIVE (NEGATIVE); UROBILINOGEN NORMAL (NORMAL)
[2018-12-07 19:06] LABS: BACTERIA FEW /hpf (NONE SEEN); EPITHELIAL CELLS 0-5 /hpf (0-5); RED CELLS - URINE OCC /hpf (0-5); WHITE CELLS - URINE 0-5 /hpf (0-5)
--- NOTE | 2018-12-07 19:50 | NUR ---
PT LAYING IN BED. RESPIRATIONS ARE EVEN AND UNLABORED. NO DISTRESS NOTED. FAMILY MEMBER AT BEDSIDE. COLOR WNL FOR RACE. IV PATENT AND INFUSING AT THIS TIME. WILL CONTINUE TO MONITOR.
[2018-12-07 20:00] VITALS: BP 194/105
--- NOTE | 2018-12-07 20:00 | NUR ---
ATTEMPTED SECOND IV LINE, WITH NO SUCCESS.
--- NOTE | 2018-12-07 20:45 | NUR ---
PT AMBULATED TO RESTROOM WITHOUT DIFFICULTY. GAIT STEADY,. NO DISTRESS NOTED AT THIS TIME. COLOR WNL FOR RACE. PT VOICES NO COMPLAINTS AT THIS TIME. WILL CONTINUE TO MONITOR.
--- NOTE | 2018-12-07 21:15 | NUR ---
contacted dr. suarez and advised of elevated bp 187/112. new orders given for clonidine 0.1 mg. will complete order
[2018-12-07 21:45] VITALS: BP 183/102
--- NOTE | 2018-12-07 22:00 | NUR ---
ATTEMPTED TO CALL REPORT, UNABLE TO GIVE REPORT AT THIS TIME.
--- NOTE | 2018-12-07 22:01 | NUR ---
2ND POTASSIUM STOPPED AT THIS TIME
[2018-12-07] MEDS ORDERED: ATARAX 25 MG TA25 MG PO (22:44)
--- NOTE | 2018-12-07 22:45 | NUR ---
PT ARRIVED TO THE FLOOR. ALERT AND ORIENTED. NO SIGNS OF DISTRESS. BREATHING EVEN AND UNLABORED. PT STATES FEELING SICK. IV SITE RT UPPER ARM 20G. BOWEL SOUNDS ACTIVE. LUNG SOUNDS CLEAR. NO LOWER LEG SWELLING PRESENT. ABD TENDER TO PALPATION. WILL CONTINUE PLAN OF CARE. CALL LIGHT IN REACH. BED LOWERED AND LOCKED. BED RAILS UPX2.
[2018-12-07 23:40] VITALS: BP 192/119; BMI 19.6
[2018-12-08 01:28] VITALS: BP 190/108
[2018-12-08 04:59] VITALS: BP 147/87
[2018-12-08 07:26] LABS: BASOPHILS 0.1 % (0-2); EOSINOPHILS 0 % (0-7); HEMATOCRIT 41.1 % (36.0-48.0); IMMATURE GRANULOCYTES 0.2 % (0-5); MCH 27.8 pg (26.0-34.0); MCHC 34.1 g/dL (31.0-37.0); MCV 81.5 fL (80.0-100.0); MEAN PLATELET VOLUME 10.1 fL (7.4-10.4); MONOCYTES 5.7 % (2-11); PLATELET COUNT 165 10x3/uL (130-400); RBC 5.04 10x6/uL (4.00-5.40); RDW 14.9 % (11.5-14.5)
--- NOTE | 2018-12-08 07:34 | NUR ---
AWAKE AND ALERT. ORIENTED X3. NO C/O PAIN OR NAUSEA AT THIS TIME. LUNGS HAVE FAINT WHEEZES THROUGHOUT LUNG VELOZ, NO COUGH NOTED. SKIN IS INTACT WITHOUT REDNESS. IV TO RIGHT UPPER ARM IS PATENT WITHOUT REDNESS AT INSERTION SITE. DENIES NEEDS.
[2018-12-08 07:47] LABS: WBC 11.7 10x3/uL (4.8-10.8)
[2018-12-08 07:54] LABS: ALKALINE PHOSPHATASE 59 U/L (46-116); ALT (SGPT) 32 U/L (10-68); BILIRUBIN - TOTAL 0.37 mg/dL (0.2-1.3); CALCIUM 9.3 mg/dL (8.5-10.1); CARBON DIOXIDE 21.1 mmol/L (21.0-32.0); CHLORIDE - SERUM 106 mmol/L (98-107); LIPASE 177 U/L (73-393); MAGNESIUM - SERUM 1.6 mg/dL (1.8-2.4); PHOSPHOROUS 3.1 mg/dL (2.5-4.9); PROTEIN - SERUM 7.9 g/dL (6.4-8.2); SODIUM 145 mmol/L (136-145); UREA NITROGEN 15 mg/dL (7-18)
[2018-12-08 07:55] LABS: AMYLASE - SERUM 145 U/L (25-115); CALC OSMOLALITY 292 mosm/kg (275-300); CREATININE - SERUM 0.8 mg/dL (0.6-1.3); GLUCOSE 145 mg/dL (74-106)
[2018-12-08 07:56] LABS: APTT 22.6 SECONDS (22.8-39.4); INR 1.07 (0.85-1.17); PROTIME 13.4 SECONDS (11.6-15.0)
[2018-12-08 07:56] LABS: eGFR NON AFRICAN AMERICAN 80 mL/min (90-120)
[2018-12-08 09:01] VITALS: BP 133/75
--- NOTE | 2018-12-08 10:00 | NUR ---
REQUESTED AND GIVEN 4MG MORPHINE SLOW IVP FOR C/O ABDOMINAL PAIN LEVEL 7. WILL MONITOR.
--- NOTE | 2018-12-08 10:09 | NUR ---
UNABLE TO EAT BREAKFAST NAUSEA NDA EMESIS. WILL MONITOR.
[2018-12-08 11:06] VITALS: Ht 165.1 cm; Wt 53.5 kg
--- NOTE | 2018-12-08 12:00 | NUR ---
FSBS 105. NO COVERAGE REQUIRED.
[2018-12-08 13:26] VITALS: BP 134/85
--- NOTE | 2018-12-08 14:00 | NUR ---
REQUESTED AND GIVEN 4MG MORPHINE SLOW IVP FOR C/O ABDOMINAL PAIN LEVEL 7. WILL MONITOR.
[2018-12-08 17:25] VITALS: BP 137/90
--- NOTE | 2018-12-08 18:15 | NUR ---
REQUESTED AND GIVEN 4MG MORPHINE SLOW IVP FOR C/O ABDOMINAL PAIN LEVEL 7. WILL MONITOR.FSBS WAS 169. REFUSED INSULIN COVERAGE. NO CHANGES NOTED. DENIES NEEDS.
[2018-12-08 20:40] VITALS: BP 141/77
[2018-12-09 00:19] VITALS: BP 126/89
[2018-12-09 04:50] VITALS: BP 146/92
[2018-12-09 06:40] LABS: BASOPHILS 0.3 % (0-2); EOSINOPHILS 1.6 % (0-7); HEMATOCRIT 39.4 % (36.0-48.0); HEMOGLOBIN 13.5 g/dL (12-16); IMMATURE GRANULOCYTES 0.1 % (0-5); LYMPHOCYTES 23.1 % (15-50); MCHC 34.3 g/dL (31.0-37.0); MCV 81.6 fL (80.0-100.0); MEAN PLATELET VOLUME 9.5 fL (7.4-10.4); MONOCYTES 9.8 % (2-11); NEUTROPHILS 65.1 % (40-80); PLATELET COUNT 155 10x3/uL (130-400); RBC 4.83 10x6/uL (4.00-5.40); WBC 7.5 10x3/uL (4.8-10.8)
[2018-12-09 06:42] LABS: CALCIUM 8.8 mg/dL (8.5-10.1); CREATININE - SERUM 0.9 mg/dL (0.6-1.3); MAGNESIUM - SERUM 1.5 mg/dL (1.8-2.4); PHOSPHOROUS 2.6 mg/dL (2.5-4.9)
[2018-12-09 06:43] LABS: ANION GAP 12.5 mmol/L (8-16); CARBON DIOXIDE 29.2 mmol/L (21.0-32.0)
[2018-12-09 06:44] LABS: POTASSIUM - SERUM 2.7 mmol/L (3.5-5.1)
[2018-12-09 08:58] VITALS: BP 126/77
--- NOTE | 2018-12-09 11:54 | NUR ---
PT IS VOMITING AND HAS 100 CC IN EMESIS BAG, FAMILY AT BEDSIDE, ADMINISTERED PRN PAIN MEDICATION. NO OTHER NEEDS VOICED, CONTINUE WITH PLAN OF CARE
[2018-12-09 12:35] VITALS: BP 158/94
[2018-12-09 13:10] LABS: LIPASE 142 U/L (73-393)
[2018-12-09 13:11] LABS: AMYLASE - SERUM 91 U/L (25-115)
[2018-12-09 17:36] VITALS: BP 164/88
[2018-12-09 20:21] VITALS: BP 144/85
[2018-12-10] VITALS (7 sets, daily range): BP systolic 140–166; BP diastolic 90–100
[2018-12-10 05:23] LABS: BASOPHILS 0.4 % (0-2); EOSINOPHILS 2.2 % (0-7); HEMATOCRIT 39.5 % (36.0-48.0); HEMOGLOBIN 13.6 g/dL (12-16); LYMPHOCYTES 30.3 % (15-50); MCH 27.9 pg (26.0-34.0); MCHC 34.4 g/dL (31.0-37.0); MCV 81.1 fL (80.0-100.0); MEAN PLATELET VOLUME 9.6 fL (7.4-10.4); MONOCYTES 12.2 % (2-11); NEUTROPHILS 54.9 % (40-80); PLATELET COUNT 160 10x3/uL (130-400); RBC 4.87 10x6/uL (4.00-5.40); RDW 14.7 % (11.5-14.5)
[2018-12-10 05:54] LABS: AMYLASE - SERUM 87 U/L (25-115); CALC OSMOLALITY 277 mosm/kg (275-300); CARBON DIOXIDE 29.2 mmol/L (21.0-32.0); CHLORIDE - SERUM 102 mmol/L (98-107); CREATININE - SERUM 0.8 mg/dL (0.6-1.3); GLUCOSE 97 mg/dL (74-106); LIPASE 155 U/L (73-393); MAGNESIUM - SERUM 1.6 mg/dL (1.8-2.4); PHOSPHOROUS 2.9 mg/dL (2.5-4.9); SODIUM 140 mmol/L (136-145); UREA NITROGEN 9 mg/dL (7-18); eGFR NON AFRICAN AMERICAN 80 mL/min (90-120)
[2018-12-10 06:01] LABS: POTASSIUM - SERUM 2.7 mmol/L (3.5-5.1)
--- NOTE | 2018-12-10 07:51 | NUR ---
ALERT AND ORIENTED. LUNGS CLEAR BILATERALLY IN ALL VELOZ. HEART SOUNDS S1 AND S2 HEARD IN ALL VELOZ. BOWEL SOUNDS ACTIVE X 4. SKIN INTACT WITHOUT REDNESS. DENIES PAIN. DENIES NEEDS. BED LOW. CALL HERNANDEZ AND PERSONAL ITEMS IN REACH. WILL CONTINUE TO MONITOR.
--- NOTE | 2018-12-10 09:55 | NUR ---
RESTING IN BED. DENIES PAIN. DENIES NEEDS. WILL CONTINUE TO MONITOR.
[2018-12-10 15:50] LABS: POTASSIUM - SERUM 2.9 mmol/L (3.5-5.1)
--- NOTE | 2018-12-10 16:14 | NUR ---
RESTING IN BED. DENIES NEEDS. WILL CONTINUE TO MONITOR.
--- NOTE | 2018-12-10 17:28 | NUR ---
PATIENT VOMITED X 1. ZOFRAN GIVEN. WILL CONTINUE TO MONITOR.
--- NOTE | 2018-12-10 18:36 | NUR ---
RESTING IN BED. DENIES PAIN. DENIES NEEDS. WILL CONTINUE TO MONITOR.
--- NOTE | 2018-12-11 01:50 | NUR ---
PT HACKING AND COUGHING UNTIL SHE GAGS AND VOMITS. PT STATES THE BACK OF HER THROAT TICKLES AND ITCHES CAUSING HER TO COUGH. C/O PAIN 11/25. GAVE MORPHINE 4 MG IV PUSH. INFUSION OF POTASSIUM RIDERS COMPLETE - WILL BE RECHECKED WITH AM LABS. NO OTHER NEEDS. WILL CONTINUE TO MONITOR.
[2018-12-11 04:00] VITALS: BP 138/95
[2018-12-11 05:36] LABS: BASOPHILS 0.5 % (0-2); EOSINOPHILS 1.7 % (0-7); HEMATOCRIT 40.9 % (36.0-48.0); HEMOGLOBIN 14.3 g/dL (12-16); LYMPHOCYTES 26.6 % (15-50); MCH 27.9 pg (26.0-34.0); MCV 79.9 fL (80.0-100.0); MEAN PLATELET VOLUME 9.5 fL (7.4-10.4); MONOCYTES 12.3 % (2-11); NEUTROPHILS 58.9 % (40-80); PLATELET COUNT 153 10x3/uL (130-400); RBC 5.12 10x6/uL (4.00-5.40); RDW 14.4 % (11.5-14.5); WBC 4.1 10x3/uL (4.8-10.8)
[2018-12-11 05:52] LABS: AMYLASE - SERUM 95 U/L (25-115); CALC OSMOLALITY 272 mosm/kg (275-300); CARBON DIOXIDE 27.6 mmol/L (21.0-32.0); CHLORIDE - SERUM 98 mmol/L (98-107); CREATININE - SERUM 0.7 mg/dL (0.6-1.3); GLUCOSE 98 mg/dL (74-106); LIPASE 201 U/L (73-393); MAGNESIUM - SERUM 1.5 mg/dL (1.8-2.4); POTASSIUM - SERUM 3.3 mmol/L (3.5-5.1); SODIUM 137 mmol/L (136-145); UREA NITROGEN 9 mg/dL (7-18); eGFR NON AFRICAN AMERICAN > 90 mL/min (90-120)
[2018-12-11 09:02] VITALS: BP 163/95
--- NOTE | 2018-12-11 11:26 | NUR ---
PT RESTING IN BED. NO SIGN OF DISTRESS. IV TO RIGHT UPPER ARM PATENT NO REDNESS OR TENDERENSS. ON TELEMETRY 108 ST. COMPLAINS OF PAIN. MEDICATIONS GIVEN. DENIES ANY FURHTER NEED AT THIS TIME. CALL LIGHT IN REACH. BED LOW POSITION. NO FAMILY AT BEDSIDE.
[2018-12-11 13:12] VITALS: BP 154/94
--- NOTE | 2018-12-11 14:02 | NUR ---
Nutrition follow-up: Diet still clear liquids due to continue nausea, vomiting Labs reviewed Wt: 118# +BM Recommend advancing diet to at least full liquids within 24 hours or nutrition support needs to begin RDN following.
[2018-12-11 18:02] VITALS: BP 154/96
--- NOTE | 2018-12-11 18:45 | NUR ---
I have reviewed this patient and I concur with the Shift Assessment completed by the Licensed Practical Nurse today this shift.
--- NOTE | 2018-12-11 19:30 | NUR ---
PT SITTING UP IN BED WITHOUT DISTRESS, AOX4. IV RIGHT UPPER ARM INFUSING LR @ 125. STATES PAIN 7/10 IN ABD AND NAUSEAS, GAVE MORPHINE AND ZOFRAN. DENIES OTHER NEEDS. CL IN REACH, WILL CTM
[2018-12-11 20:00] VITALS: BP 174/99
[2018-12-12 04:00] VITALS: BP 120/60
[2018-12-12 06:55] LABS: AMYLASE - SERUM 105 U/L (25-115); CALC OSMOLALITY 274 mosm/kg (275-300); CALCIUM 9.5 mg/dL (8.5-10.1); CARBON DIOXIDE 27.4 mmol/L (21.0-32.0); CHLORIDE - SERUM 98 mmol/L (98-107); CREATININE - SERUM 0.7 mg/dL (0.6-1.3); GLUCOSE 88 mg/dL (74-106); LIPASE 233 U/L (73-393); MAGNESIUM - SERUM 1.4 mg/dL (1.8-2.4); SODIUM 139 mmol/L (136-145); UREA NITROGEN 8 mg/dL (7-18); eGFR NON AFRICAN AMERICAN > 90 mL/min (90-120)
[2018-12-12 07:00] LABS: POTASSIUM - SERUM 2.8 mmol/L (3.5-5.1)
[2018-12-12 07:02] LABS: BASOPHILS 0.7 % (0-2); HEMATOCRIT 40.9 % (36.0-48.0); HEMOGLOBIN 14.7 g/dL (12-16); IMMATURE GRANULOCYTES 0.2 % (0-5); LYMPHOCYTES 36.1 % (15-50); MCH 28.3 pg (26.0-34.0); MCHC 35.9 g/dL (31.0-37.0); MCV 78.7 fL (80.0-100.0); MEAN PLATELET VOLUME 9.4 fL (7.4-10.4); MONOCYTES 14.9 % (2-11); NEUTROPHILS 46.1 % (40-80); PLATELET COUNT 161 10x3/uL (130-400); RDW 14.4 % (11.5-14.5); WBC 4.4 10x3/uL (4.8-10.8)
[2018-12-12 09:08] VITALS: BP 190/111
--- NOTE | 2018-12-12 10:38 | NUR ---
IV REMOVED FROM RIGHT UPPER ARM DUE TO LEAKING. IV RESTARTED TO RUGHT WRIST X3 STICKS WITH 22G. PATIENT CONTINUES TO HAVE NAUSEA AND VOMITING AND REPORTS ABDOMINAL PAIN OF 10. ZOFRAN GIVEN FOR VOMITING
[2018-12-12 12:17] VITALS: BP 166/100
[2018-12-12 16:45] VITALS: BP 160/101
--- NOTE | 2018-12-12 16:55 | MORECARE ---
CASE MANAGEMENT DISCHARGE SUMMARY PATIENT: DEBBIE LANIER UNIT: [id number] ADM DATE: 12/07/18 AGE: 53 : 69 SEX: F ROOM/BED: D.2229 AUTHOR: CAMILO ZIMMERMAN PHYSICIAN: REFERRING PHYSICIAN: LEANDER HUGGINS MD DATE OF SERVICE: 12/12/18 Discharge Plan Patient Name: DEBBIE LANIER [facility] [facility] 1965 Planned Disposition: Home Anticipated Discharge Date: Discharge Date: Expected LOS: Initial Reviewer: [email or web address] Initial Review Date: 12/12/2018 Generated: 12/12/18 5:55 pm Patient Name: DEBBIE LANIER Page [id number] at 1653 All edits/amendments must be made on the electronic document DICTATION DATE: 12/12/181654 ENTOMOLOGY TEACHER: ARLENE 12/12/181654 RPT#: [id number] DC DATE: STATUS: ADM IN [facility] [address] [place] [address] END OF REPORT
--- NOTE | 2018-12-12 17:05 | MORECARE ---
CASE MANAGEMENT DISCHARGE SUMMARY PATIENT: DEBBIE LANIER UNIT: [id number] ADM DATE: 12/07/18 AGE: 53 : 69 SEX: F ROOM/BED: D.2229 AUTHOR: ERASMO,DOC PHYSICIAN: REFERRING PHYSICIAN: LEANDER HUGGINS MD DATE OF SERVICE: 12/12/18 Discharge Plan Patient Name: DEBBIE LANIER Facility: [facility]:[place] : 1965 Planned Disposition: Home Anticipated Discharge Date: Discharge Date: Expected LOS: Initial Reviewer: [email or web address] Initial Review Date: 12/12/2018 Generated: 12/12/18 6:04 pm Comments DCP- Discharge Planning Updated by [email or web address]: Marysol Walsh on 12/12/18 3:[address] Patient Name: DEBBIE LANIER Admission Status: ER Accout number: [id number] Admission Date: 12-07-2018 : 1965 Admission Diagnosis:NONINFECTIVE GASTROENTERITIS AND COLITIS, UNSPECIFIED Attending: BHAVNA, Current LOS: 5 Anticipated DC Date: Planned Disposition: Home Primary Insurance: MEDICAID [place] Discharge Planning Comments: CM met with patient to complete initial dc planning assessment. CM educated patient on the CM role and verbal consent given by patient to complete assessment. Patient lives at home with her . At discharge patient plans to return and feels this is a safe discharge. CM discussed availability of home health, rehab services, and medical equipment. Patient denied known discharge needs at this time. States her will take her home on discharge. CM will continue to follow and will assist as needed with dc plans/needs. Information [employer] Internship: Marysol Walsh DCPIA - Discharge Planning Initial Assessment Updated by [email or web address]: Marysol Walsh on 12/12/18 4:56 pm * Is the patient Alert and Oriented? Yes * How many steps to enter\exit or inside your home? few/flight * PCP Dr. Gary Catalan * Pharmacy [facility] * Preadmission Environment Home with Family * ADLs Independent * Equipment None * List name and contact numbers for known caregivers / representatives who currently or will assist patient after discharge: [facility] - [phone] * Verbal permission to speak to the caregivers and representatives has been obtained from the patient. Yes * Community resources currently utilized None * Additional services required to return to the preadmission environment? No * Can the patient safely return to the preadmission environment? Yes * Has this patient been hospitalized within the prior 30 days at any hospital? No Last DP export: 12/12/18 3:55 p Patient Name: DEBBIE LANIER Page [id number] at 1705 All edits/amendments must be made on the electronic document DICTATION DATE: 12/12/181703 DRAFTING CLERK: ARLENE 12/12/181703 RPT#: [id number] DC DATE: STATUS: ADM IN [facility] [address] [place] [address] END OF REPORT
--- NOTE | 2018-12-12 19:30 | NUR ---
PT SITTING UP IN BED, AOX4. IV RIGHT WRIST INFUSING LR @ 125 AND K+ RIDER. HR [address] PER TELE. PT NAUSEAS WITH PAIN 09/25. WILL ADDRESS, SEE MAR. DENIES NEEDS AT THIS TIME. CL IN REACH, WILL CTM
[2018-12-12 20:00] VITALS: BP 154/97
[2018-12-13] VITALS (7 sets, daily range): BP systolic 127–183; BP diastolic 79–117
[2018-12-13 06:49] LABS: MAGNESIUM - SERUM 1.4 mg/dL (1.8-2.4)
[2018-12-13 07:09] LABS: POTASSIUM - SERUM 2.9 mmol/L (3.5-5.1)
[2018-12-13 08:06] LABS: ANION GAP 21.6 mmol/L (8-16); CALCIUM 9.4 mg/dL (8.5-10.1); CARBON DIOXIDE 23.3 mmol/L (21.0-32.0); CREATININE - SERUM 0.9 mg/dL (0.6-1.3)
[2018-12-13 08:28] LABS: BASOPHILS 0.5 % (0-2); EOSINOPHILS 0.7 % (0-7); HEMATOCRIT 40.7 % (36.0-48.0); HEMOGLOBIN 14.4 g/dL (12-16); IMMATURE GRANULOCYTES 0.2 % (0-5); LYMPHOCYTES 20.7 % (15-50); MCH 27.9 pg (26.0-34.0); MCHC 35.4 g/dL (31.0-37.0); MCV 78.9 fL (80.0-100.0); MEAN PLATELET VOLUME 9.6 fL (7.4-10.4); MONOCYTES 16.1 % (2-11); NEUTROPHILS 61.8 % (40-80); PLATELET COUNT 156 10x3/uL (130-400); RBC 5.16 10x6/uL (4.00-5.40); RDW 14.4 % (11.5-14.5); WBC 4.2 10x3/uL (4.8-10.8)
--- NOTE | 2018-12-13 08:40 | NUR ---
PT RESTING IN BED. DOING FLUTTER. NO S/S OF ACUTE DISTRESS. CL IN PLACE.
--- NOTE | 2018-12-13 08:41 | NUR ---
PT RESTING IN BED. CO OF N/V. BROUGHT PT WATER PER PT REQUEST. EXPLAINED TO PT SHE MAY WANT TO HOLD OFF. PT REFUSED. NO S/S OF ACUTE DISTRESS. CL IN PLACE.
--- NOTE | 2018-12-13 19:25 | NUR ---
PT RESTING IN BED. VOMITED YELLOW BILE ON AND OFF TODAY. NO S/S OF ACUTE DISTRESS. CL IN PLACE.
--- NOTE | 2018-12-13 20:00 | NUR ---
LYING IN BED WITH EYES CLOSED. AWAKENED FOR ASSESSMENT. FLAT AFFECT. RESP EVEN AND NONLABORED. MILD NAUSEA NOTED BUT NO VOMITING. ZOFRAN DRIP IN USE @ 4.7 ML/HR WITH LR @ 125 MLHR IN RT WRIST WITHOUT DIFF. TELEMETRY SHOWS ST WITH RATE OF 118. VERY QUIET. SPEAKS ONLY WHEN SPOKEN TO OR TO VERBALIZE NEEDS. CL IN REACH.
[2018-12-14 04:00] VITALS: BP 142/93
--- NOTE | 2018-12-14 04:12 | NUR ---
HAS RESTED WELL TONIGHT. NO VOMITING SO FAR. NO DISTRESS. CL IN REACH.
--- NOTE | 2018-12-14 05:44 | NUR ---
VOMITED 100 ML OF BILE COLORED EMESIS IMMEDIATELY AFTER TAKING CARAFATE.
--- NOTE | 2018-12-14 07:30 | NUR ---
PT RESTING IN BED. IV SITE COOL AND SWOLLEN. PT DENIES PAIN TO SITE. NO PIV ACCESS SEEN. SPOKE WITH JANELLE RIVERA. VASCULAR ACCESS CONSULT FOR MIDLINE. NO S/S OF ACUTE DISTRESS. "I FEEL SO MUCH BETTER TODAY." CL IN PLACE.
[2018-12-14 08:01] LABS: HEMATOCRIT 39.3 % (36.0-48.0); HEMOGLOBIN 13.8 g/dL (12-16); MCH 27.8 pg (26.0-34.0); MCHC 35.1 g/dL (31.0-37.0); MCV 79.2 fL (80.0-100.0); MEAN PLATELET VOLUME 9.5 fL (7.4-10.4); PLATELET COUNT 131 10x3/uL (130-400); RBC 4.96 10x6/uL (4.00-5.40); RDW 14.9 % (11.5-14.5)
[2018-12-14 08:21] LABS: ANION GAP 18.4 mmol/L (8-16); CALCIUM 9.1 mg/dL (8.5-10.1); CARBON DIOXIDE 23.3 mmol/L (21.0-32.0)
[2018-12-14 08:25] LABS: POTASSIUM - SERUM 2.7 mmol/L (3.5-5.1)
[2018-12-14 09:30] LABS: EOSINOPHILS 2 % (0-7); LYMPHOCYTES 30 % (15-50); MONOCYTES 16 % (2-11); NEUTROPHILS 51 % (40-80); PLATELET ESTIMATE NORMAL
[2018-12-14 09:31] LABS: HYPOCHROMASIA OCC; ROULEAUX OCC
[2018-12-14 09:39] VITALS: BP 160/100
[2018-12-14 15:45] VITALS: BP 135/81
--- NOTE | 2018-12-14 18:07 | NUR ---
PT RESTING IN BED. NO S/S OF ACUTE DISTRESS. CL IN PLACE. DENIES N/V TODAY
--- NOTE | 2018-12-14 19:30 | NUR ---
SITTING UP IN BED TALKING TO SPOUSE. ALERT AND ORIENTED X4. SMILING AND STATES SHE IS FEELING BETTER AND NO VOMITING TODAY. ZOFRAN DRIP INFUSING WITH LR WITH 40 MEQ KCL @ 125 MLHR IN RT UPPER ARM MIDLINE WITHOUT DIFF. TELEMETRY SHOWS ST WITH RATE OF 105. RATES PAIN IN ABD 6. AMBULATORY. NO DISTRESS. CL IN REACH.
[2018-12-14 20:00] VITALS: BP 115/79
--- NOTE | 2018-12-14 20:55 | NUR ---
MEDICATED WITH MORPHINE FOR C/O ABD PAIN. CL IN REACH.
[2018-12-15] VITALS: BP 159/99
--- NOTE | 2018-12-15 01:12 | NUR ---
MEDICATED WITH MORPHINE FOR C/O ABD PAIN. HAS VOMITED A COUPLE OF TIMES INTO TRASHCAN IN THE LAST HOUR. CL IN REACH.
[2018-12-15 04:00] VITALS: BP 150/98
--- NOTE | 2018-12-15 05:37 | NUR ---
MEDICATED FOR C/O PAIN IN ABD WITH MORPHINE REQUESTED. CL IN REACH.
[2018-12-15 06:32] LABS: BASOPHILS 0.5 % (0-2); EOSINOPHILS 2.1 % (0-7); HEMATOCRIT 40.6 % (36.0-48.0); HEMOGLOBIN 14.2 g/dL (12-16); IMMATURE GRANULOCYTES 0.5 % (0-5); LYMPHOCYTES 24.8 % (15-50); MCH 27.6 pg (26.0-34.0); NEUTROPHILS 46.1 % (40-80); PLATELET COUNT 149 10x3/uL (130-400); RBC 5.14 10x6/uL (4.00-5.40); RDW 14.9 % (11.5-14.5); WBC 4.4 10x3/uL (4.8-10.8)
[2018-12-15 06:53] LABS: ANION GAP 13.4 mmol/L (8-16); MAGNESIUM - SERUM 1.5 mg/dL (1.8-2.4); PHOSPHOROUS 3.2 mg/dL (2.5-4.9); POTASSIUM - SERUM 3.5 mmol/L (3.5-5.1)
[2018-12-15 07:02] LABS: CARBON DIOXIDE 31.1 mmol/L (21.0-32.0)
--- NOTE | 2018-12-15 07:20 | NUR ---
PT RESTING IN BED WITH EYES CLOSED, EASILY AROUSED TO SPEECH. ALERT AND ORIENTED BUT SPEECH IS EXTREMELY QUIET. PLACED SCDS BACK ON. MIDLINE LOCATED TO UPPER RIGHT ARM RUNNING LR WITH 40MEQ @ 125ML/HR. NO S/S OF DISTRESS NOTED AT THIS TIME, WILL CONT TO MONITOR. BED LOW, CALL LIGHT IN REACH, RAILS UP X 2.
[2018-12-15 07:50] VITALS: BP 170/104
--- NOTE | 2018-12-15 09:30 | NUR ---
INFORMED PT THAT URINE SAMPLE IS NEEDED, PLACED URINE CUP IN ROOM AND INSTRUCTED HER HOW TO DO A CLEAN CATCH/USE CALL LIGHT TO LET ME KNOW WHEN SHE NEEDS TO URINATE.
[2018-12-15 12:08] LABS: APPEARANCE CLEAR (CLEAR); COLOR STRAW (YELLOW); GLUCOSE NEGATIVE (NEGATIVE); KETONE SMALL mg/dL (NEGATIVE); NITRITE NEGATIVE (NEGATIVE); PROTEIN NEGATIVE (NEGATIVE); SPECIFIC GRAVITY 1.005 (1.005-1.020); UROBILINOGEN NORMAL (NORMAL)
[2018-12-15 12:09] LABS: AMORPHOUS SEDIMENT <1+ /lpf (NONE SEEN); BACTERIA FEW /hpf (NONE SEEN); BILIRUBIN NEGATIVE (NEGATIVE); EPITHELIAL CELLS RARE /hpf (0-5); MUCUS <1+ /lpf (NONE SEEN); WHITE CELLS - URINE RARE /hpf (0-5)
[2018-12-15 12:46] VITALS: BP 132/72
[2018-12-15 16:48] VITALS: BP 148/71
--- NOTE | 2018-12-15 19:15 | NUR ---
RECEIVED CARE FROM DAY NURSE. LYING IN BED WATCHING TV. NO NEEDS VOICED AT THIS TIME. CALL LIGHT AT SIDE. IV INFUSING PER ORDER TO PATENT RIGHT MIDLINE.
[2018-12-15 20:00] VITALS: BP 155/95
[2018-12-16] VITALS: BP 144/94
[2018-12-16 04:00] VITALS: BP 165/94
--- NOTE | 2018-12-16 04:30 | NUR ---
I have reviewed this patient and I concur with the Shift Assessment completed by the Licensed Practical Nurse today this shift.
[2018-12-16 06:46] LABS: HEMATOCRIT 41.3 % (36.0-48.0); HEMOGLOBIN 14.7 g/dL (12-16); MCH 28.4 pg (26.0-34.0); MCHC 35.6 g/dL (31.0-37.0); MCV 79.9 fL (80.0-100.0); PLATELET COUNT 138 10x3/uL (130-400); RBC 5.17 10x6/uL (4.00-5.40); RDW 14.9 % (11.5-14.5)
[2018-12-16 07:04] LABS: CALCIUM 9.1 mg/dL (8.5-10.1); CARBON DIOXIDE 29.7 mmol/L (21.0-32.0); CHLORIDE - SERUM 100 mmol/L (98-107); CREATININE - SERUM 0.8 mg/dL (0.6-1.3); GLUCOSE 109 mg/dL (74-106); SODIUM 137 mmol/L (136-145); eGFR NON AFRICAN AMERICAN 80 mL/min (90-120)
[2018-12-16 07:06] LABS: CALC OSMOLALITY 274 mosm/kg (275-300); POTASSIUM - SERUM 4.1 mmol/L (3.5-5.1); UREA NITROGEN 13 mg/dL (7-18)
[2018-12-16 08:15] LABS: BASOPHILS 3 % (0-2); EOSINOPHILS 4 % (0-7); LYMPHOCYTES 26 % (15-50); MONOCYTES 26 % (2-11); NEUTROPHILS 39 % (40-80); PLATELET ESTIMATE DECREASED
[2018-12-16 09:04] VITALS: BP 152/98
--- NOTE | 2018-12-16 10:48 | NUR ---
PT RESTING IN BED. NO SIGNS OF DISTRESS. IV TO RIGHT UPPER ARM MIDLINE PATENT NO REDNESS OR TENDERNESS. DENIES ANY FURTHER NEED AT THIS TIME. CALL LIGHT IN REACH. BED LOW POSITION. NO FAMILY AT BEDSIDE.
[2018-12-16] MEDS ORDERED: REGLAN5 MG PO (11:22)
[2018-12-16] MEDS ORDERED: LEVAQUIN750 MG PO (11:34)
[2018-12-16] MEDS ORDERED: FLAGYL500 MG PO (11:34)
[2018-12-16 12:30] VITALS: BP 165/54
--- NOTE | 2018-12-16 14:22 | NUR ---
Nutrition Consult for Low Residue diet education: Discussed: 1) Avoid high fiber foods: whole grains, skins and seeds of fruits and vegetables 2) Avoid high fat foods: fried foods, full fat dairy, fatty meats 3) Avoid caffeine and high acidic foods 4) Chewable MVI 5) 5-6 small meals per day 6) Plenty of fluids, mostly water 7) Provided Low Residue diet education (Low Fiber <8gms) from the Nutrition Care Manual Patient agreeable and thanked me for diet instruction. Expect good compliance. Codi Regan, MS, RD, LD
--- NOTE | 2018-12-16 14:51 | NUR ---
DISCHARGE INSTRUCTIONS GIVEN. SEEMS TO UNDERSTAND INSTRUCTIONS. IV OUT TIP INTACT. TELEMETRY OFF AND RETURNED. DENIES ANY FURTHER NEED. LEFT WITH HOSPTIAL STAFF TO GO HOME WITH FAMILY IN PERSONAL RIDE.
--- NOTE | 2018-12-17 11:50 | MORECARE ---
CASE MANAGEMENT DISCHARGE SUMMARY PATIENT: DEBBIE LANIER UNIT: [id number] ADM DATE: 12/07/18 AGE: 53 : 69 SEX: F ROOM/BED: D.2229 AUTHOR: ERASMO,DOC PHYSICIAN: REFERRING PHYSICIAN: LEANDER HUGGINS MD DATE OF SERVICE: 12/17/18 Discharge Plan Patient Name: DEBBIE LANIER Facility: [facility]:[place] : 1965 Planned Disposition: Home Anticipated Discharge Date: Discharge Date: 12/16/2018 Expected LOS: Initial Reviewer: [email or web address] Initial Review Date: 12/12/2018 Generated: 12/17/18 12:50 pm DCP- Discharge Planning Updated by [email or web address]: Marysol Walsh on 12/12/18 3:[address] Patient Name: DEBBIE LANIER Admission Status: ER Accout number: [id number] Admission Date: 12-07-2018 : 1965 Admission Diagnosis:NONINFECTIVE GASTROENTERITIS AND COLITIS, UNSPECIFIED Attending: BHAVNA, Current LOS: 5 Anticipated DC Date: Planned Disposition: Home Primary Insurance: MEDICAID [place] Discharge Planning Comments: CM met with patient to complete initial dc planning assessment. CM educated patient on the CM role and verbal consent given by patient to complete assessment. Patient lives at home with her . At discharge patient plans to return and feels this is a safe discharge. CM discussed availability of home health, rehab services, and medical equipment. Patient denied known discharge needs at this time. States her will take her home on discharge. CM will continue to follow and will assist as needed with dc plans/needs. Regroover: Marysol Walsh DCPIA - Discharge Planning Initial Assessment Updated by [email or web address]: Marysol Walsh on 12/12/18 4:56 pm * Is the patient Alert and Oriented? Yes * How many steps to enter\exit or inside your home? few/flight * PCP Dr. Gary Catalan * Pharmacy [facility] * Preadmission Environment Home with Family * ADLs Independent * Equipment None * List name and contact numbers for known caregivers / representatives who currently or will assist patient after discharge: [facility] - [phone] * Verbal permission to speak to the caregivers and representatives has been obtained from the patient. Yes * Community resources currently utilized None * Additional services required to return to the preadmission environment? No * Can the patient safely return to the preadmission environment? Yes * Has this patient been hospitalized within the prior 30 days at any hospital? No Last DP export: 12/12/18 4:05 p Patient Name: DEBBIE LANIER Page [id number] at 1150 All edits/amendments must be made on the electronic document DICTATION DATE: 12/17/18 115 SALON RECEPTIONIST: ARLENE 12/17/18 1150 RPT#: [id number] DC DATE:12/16/18 STATUS: DIS IN [place] [id number] [place] [address] END OF REPORT
== END 2018-12-16 14:53 | disposition home or self-care (01) | DRG 872 ==
LOC: D.ER 16:37 → D.MS 20:11
PROVIDERS: Family Medicine; Internal Medicine Nephrology; ADMIT Family Medicine; ATTEND Family Medicine
DX: A41.9 Sepsis, unspecified organism (principal); I69.354 Hemiplegia and hemiparesis following cerebral infarction affecting left non-dominant side; K52.9 Noninfective gastroenteritis and colitis, unspecified; I16.0 Hypertensive urgency; F12.929 Cannabis use, unspecified with intoxication, unspecified; E87.6 Hypokalemia; E16.2 Hypoglycemia, unspecified; K21.9 Gastro-esophageal reflux disease without esophagitis; K76.0 Fatty (change of) liver, not elsewhere classified; K31.84 Gastroparesis